=== PATIENT | male | born 1940 | race Caucasian/White ===

== ENCOUNTER 2018-05-03 00:38 | Outpatient (CLI) | payer OTHER, SELFPAY ==
--- NOTE | 2018-05-03 07:01 | DI.RAD_ITS ---
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 There is medial tibiofemoral joint space narrowing , periarticular hypertrophic spurring and chondrocalcinosis. Also, degenerative changes involving the patellofemoral joint are identified. There is no evidence of a joint effusion. 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
[2018-05-03 07:30] LABS: Abs Immature Grans 0.04 k/cumm (0.0-0.09); Absolute Basophil Count 0.09 k/cumm (0.0-0.2); Absolute Eosinophil Count 0.35 k/cumm (0.0-0.7); Absolute Lymphocyte Count 1.77 k/cumm (1.2-3.4); Absolute Monocyte Count 0.88 k/cumm (0.11-0.7); Absolute Neutrophil Count 4.71 k/cumm (1.2-6.7); Basophils % 1.1; Eosinophils % 4.5; HGB 14.1 g/dL (13.5-17.5); Immature Grans % 0.5; Lymphocytes % 22.6; Mean Corp. HGB Concentration 34.4 g/dL (32.0-36.0); Mean Corpuscular Hemoglobin 31.6 pg (27.0-33.0); Mean Corpuscular Volume 91.9 fL (80-95); Mean Platelet Volume 8.6 fL (8.0-11.0); Monocytes % 11.2; Neutrophils % 60.1; Platelet Count 253 x1000/uL (130-400); RBC 4.46 m/cumm (4.50-6.00); RBC Distribution Width 12.4 % (11.8-14.1); White Blood Cell Count 7.84 k/cumm (4.4-10.8)
[2018-05-03 07:53] LABS: ALT 37 U/L (12-78); AST 24 U/L (15-37); Albumin 3.7 g/dL (3.4-5.0); Alkaline Phosphatase 89 U/L (46-116); Anion Gap 8.2 mmol/L (3-11); BUN 18 mg/dL (7-18); Bilirubin, Total 0.6 mg/dL (0.2-1.0); CO2 28.8 mmol/L (21.0-32.0); CREATININE 0.81 mg/dL (0.70-1.30); Calcium 8.8 mg/dL (8.5-10.1); Chloride 100 mmol/L (98-107); Glucose 92 mg/dL (70-100); Potassium 4.5 mmol/L (3.5-5.1); Sodium 137 mmol/L (136-145); TSH (W/Ref FT4) 1.81 uIU/mL (0.358-3.74); Total Protein 7.1 g/dL (6.4-8.2)
[2018-05-03 08:11] LABS: Cholesterol 181 mg/dL (50-200); HDL Cholesterol 38 mg/dL (40-60); LDL CHOLESTEROL 106 mg/dL (<100); Triglyceride 255 mg/dL (30-150)
== END 2018-05-03 00:58 ==
PROVIDERS: PCP Family Medicine; Visit Provider Family Medicine
DX: M25.561 Pain in right knee (principal); M17.11 Unilateral primary osteoarthritis, right knee; E78.5 Hyperlipidemia, unspecified; I10 Essential (primary) hypertension
CPT/HCPCS: 36415; 73562; 80053; 80061; 83721; 84443; 85025

== ENCOUNTER → 2018-05-31 09:39 | Outpatient (BNVA) | payer OTHER, SELFPAY | PROVIDERS: PCP Family Medicine; Referring Provider Family Medicine; Visit Provider Orthopaedic Surgery | DX: G56.01 Carpal tunnel syndrome, right upper limb (principal); K40.90 Unilateral inguinal hernia, without obstruction or gangrene, not specified as recurrent; M17.11 Unilateral primary osteoarthritis, right knee | CPT/HCPCS: 99211; 99213 ==

== ENCOUNTER 2018-07-06 06:31 | Day surgery (SDC) | payer MEDICARE, SELFPAY ==
[2018-07-06 06:54] VITALS: BP 144/81; PULSE 78; RESP 16; TEMP 35.6; O2SAT 96
[2018-07-06] MEDS: Lidocaine 2% Multi-Dose 50 ML VIAL (07:56)
--- NOTE | 2018-07-06 08:09 | W.PM.DSUDISC ---
Discharge Plan Disposition Patient Disposition: HOME Condition: Improving Discharge Details Reason For Visit: CTS (R) WRIST Attending Provider: Daryn Leal Primary Care Provider: Bj Brasher Home Meds and New Rx's Prescriptions: No Action triamcinolone acetonide 0.1 % cream 1 applic TP TID PRN Qty: 80 RF: 2 atorvastatin 20 MG tablet 20 mg PO DAILY Qty: 90 RF: 4 lisinopril-hydrochlorothiazide [Zestoretic] 1 EACH tablet 1 tab-cap PO DAILY Qty: 90 RF: 4 Discharge Instructions Additional Instructions: Keep your right hand elevated above heart level as much as possible for the next 48-72 hours. Exercise your fingers and thumb as comfort allows. You may loosen your wrist splint and/or the underlying cisco bandage if they feel too tight. Expect some bloody drainage on the underlying gauze bandage. For showering tomorrow, cover your hand with a plastic bag and a rubber band at the forearm to keep the bandages dry. On 07/08/18, you may remove all of your bandages and get your wound wet in the shower with soap and water. Gently pat the stitches dry and cover them with gauze, or extra-large bandaids or with a clean fingerless cotton glove. Resume normal use as tolerated, going without the brace as soon as you are comfortable. Follow-up with Dr. Leal in 1 week for stitch removal. Take tylenol, aleve or ibuprofen for milder pain. Tylenol may be taken at the same time as aleve or at the same time as advil as they are metabolized differently and are not cross toxic. Take norco (hydrocodone 5/325mg) 1-2 every 4-6 hours for more serious pain. [facility] regulations limit the amount of hydrocodone that can be prescribed to 18 tablets. Stand Alone Forms: Gretchen Benito (DSU) Remove Dressings/Wound Care:: 48 hours Shower/Bathe:: 48 hours Diet:: As Tolerated Discharge Orders Discharge Orders: Discharge Order (Routine); Ordered 07/06/18 Ordered By: Daryn Leal
--- NOTE | 2018-07-06 10:21 | ROE_ITS ---
REPORT OF OPERATIVE PROCEDURE DATE OF PROCEDURE July 06, 2018 PREOPERATIVE DIAGNOSIS Chronic right carpal tunnel syndrome. POSTOPERATIVE DIAGNOSIS Chronic right carpal tunnel syndrome. PROCEDURE PERFORMED Right open carpal tunnel release. SURGEON Daryn Leal M.D. COUNSELLING PSYCHOLOGIST Nurse. ANESTHESIA Local 2% Lidocaine plain. PREP ChloraPrep. INDICATIONS This patient is a 78-year-old male who has been bothered by bilateral carpal tunnel syndrome. He unde rwent successful carpal tunnel surgery by me approximately a year ago. He now returns to have the rig ht hand treated. He had already undergone EMG nerve conduction studies verifying the above-named diag nosis. I reviewed with the patient the planned operative procedure in the office and re-reviewed them this morning in the day surgery holding area. I marked his right hand. The risks and benefits were d iscussed. He understood and wished to proceed. PROCEDURE DESCRIPTION The patient was taken to the Operating Suite, where his right upper extremity was prepped with Chlora Prep. Sterile drapes were applied. A timeout was instituted confirming the planned procedure. The pat ient had no allergies. 2% lidocaine was then used to create an anesthetic wheal over the proposed inc ision site. After waiting an appropriate amount of time, the incision was made, this was a universal carpal tunnel incision based over the ring finger ray. Care was taken to deviate the incision in an ulnar direction across the wrist flexion crease so as to prevent any potential injury to the palmar c utaneous branch and the median nerve. Using Loupe magnification, the incision was carried down by a c ombination of sharp and blunt dissection through the palmar fascia. Heiss retractors were inserted. The transverse carpal ligament was easily identified. Under direct vi page, I released the transverse carpal ligament completely, including releasing the antebrachial fasc ia so as to prevent it from acting as a compressive force on the median nerve. In addition, on the distal end of the incision, care was taken that the transverse carpal ligament wa s completely released. I had the patient flex and extend his fingers. The flexor tendons were visible . I did not find any evidence of inflammatory arthritis. There were no loose bodies, foreign bodies o r ganglion cysts. The median nerve had the characteristic hourglass constriction from the tight trans verse carpal ligament. The wound was then irrigated. The skin was closed with sutures of 4-0 Ethilon in an alternating fashion of simple sutures, along with rreo-lcp-frp-near retention sutures. The [place] ent's wounds were dressed with Xeroform gauze, 4x4s, a 3-inch Conforming gauze bandage, a 3-inch Jaison wrap and a commercial wrist immobilizer. He was taken to the Recovery Room in satisfactory condition, tolerating the procedure well.
== END 2018-07-06 08:30 | disposition home or self-care (01) ==
PROVIDERS: PCP Family Medicine; Visit Provider Orthopaedic Surgery
PROC: (CPT 64721; principal; 2018-07-06 07:30)
DX: G56.01 Carpal tunnel syndrome, right upper limb (principal)
CPT/HCPCS: 64721; L3908

== ENCOUNTER → 2018-07-13 11:29 | Outpatient (BNVA) | payer MEDICARE, SELFPAY | PROVIDERS: PCP Family Medicine; Referring Provider Family Medicine; Visit Provider Orthopaedic Surgery | DX: Z47.89 Encounter for other orthopedic aftercare (principal); G56.01 Carpal tunnel syndrome, right upper limb; I10 Essential (primary) hypertension ==

== ENCOUNTER → 2018-07-16 09:00 | Outpatient (BNVA) | payer MEDICARE, SELFPAY | PROVIDERS: PCP Family Medicine; Referring Provider Family Medicine; Visit Provider Surgery | DX: K40.91 Unilateral inguinal hernia, without obstruction or gangrene, recurrent (principal); I10 Essential (primary) hypertension | CPT/HCPCS: 99202; 99213 ==

== ENCOUNTER → 2018-07-24 08:34 | Outpatient (BNVA) | payer MEDICARE, SELFPAY | PROVIDERS: PCP Family Medicine; Referring Provider Family Medicine; Visit Provider Orthopaedic Surgery | DX: Z47.89 Encounter for other orthopedic aftercare (principal); G56.01 Carpal tunnel syndrome, right upper limb ==

== ENCOUNTER 2018-09-05 06:02 | Day surgery (SDC) | payer MEDICARE, SELFPAY ==
[2018-09-05] VITALS (7 sets, daily range): BP systolic 98–145; BP diastolic 54–83; PULSE 62–70; RESP 14–20; TEMP 35.9–36.7; O2SAT 93–98
[2018-09-05] MEDS: Lactated Ringers 1,000 ML 80 ML IV (06:37)
--- NOTE | 2018-09-05 06:54 | W.PM.HP.N ---
Date of service: 09/05/18 Time of Service: 07:03 Assessment and Plan (1) Recurrent right inguinal hernia: Current visit: Yes Status: Acute P\\ Repair of recurrent right inguinal hernia with mesh Risks, benefits and complications have been reviewed. Complications include but are not limited to bleeding, infection, injury to vas, vessels and nerves, injury to bowel and adverse reaction to medications. Questions were entertained and answered to their satisfaction and they wished to proceed. History of Present Illness Chief Complaint: Recurrent RIH Narrative: Patient had in the 70s a right inguinal hernia repair presents today with a recurrent right inguinal hernia that is incarcerated and has been getting worse over the past year Onset: 07/17/17 Location: right groin Duration: 1 year Aggravating or associated factors: walking, lifting Relieving factors: laying down Review of Systems Constitutional Denies fever(s) PFSH Medical History Hyperlipidemia Hypertension Surgical History Colonoscopy - MAC Open Carpal Tunnel release Repair of inguinal hernia Family History Mother Personal history of malignant neoplasm Father No problems noted. Brother No problems noted. Grandfather No problems noted. Grandfather No problems noted. Grandmother No problems noted. Grandmother No problems noted. Social History frequency: does not exercise Smoking and Tabacco status: Never alcohol intake: current alcohol intake frequency: a few times a week lorrie/scientologist: No preference special lorrie needs: No Meds Home Medications Medication Instructions Recorded Confirmed Type atorvastatin 20 mg PO DAILY #90 tab-cap 12/29/14 09/05/18 History lisinopril-hydrochlorothiazide 1 tab-cap PO DAILY #90 tab-cap 12/29/14 09/05/18 History [Zestoretic 20-12.5 Mg Tablet] triamcinolone acetonide 1 applic TP TID PRN PRN 07/27/18 09/05/18 History Allergies Allergy/AdvReac Type Severity Reaction Status Date / Time No Known Allergies Allergy Verified 09/05/18 06:18 Exam Resp Effort & Inspection: normal respiratory effort Auscultation: clear to auscultation bilaterally Cardio Rate: regular rate Rhythm: regular rhythm Heart Sounds: no gallops, no murmurs and no rubs Results Last Vital Signs Temp 96.6 F L 09/05/18 06:20 Pulse 70 09/05/18 06:20 Resp 18 09/05/18 06:20 BP 145/83 H 09/05/18 06:20 Pulse Ox 94 L 09/05/18 06:20
--- NOTE | 2018-09-05 07:08 | W.PM.OP ---
Date of service: 09/05/18 Time of Service: 07:30 Operative Note DATE OF PROCEDURE: 09/05/18 PRE-OP DIAGNOSIS: Recurrent Right inguinal hernia POST-OP DIAGNOSIS: same PROCEDURE: Repair of recurrent right inguinal hernia with mesh SURGEON: Anh Mack ASSISTING SURGEON: Yashira Abebe JUNIOR HIGH MATH TEACHER: Yashira Abebe ANESTHESIA: other (General with LMA/ TAP block) ESTIMATED BLOOD LOSS: 10 PATHOLOGY: none sent COMPLICATIONS: None Patient was transported to: same day Patient's condition: stable Implants: Bard Mesh Perfix Plug REF [id number] Indications: Mr. Fonseca is a pleasant 78 year old male seen in the office by Dr. Carvalho for a recurrent RIH. He has had it for 1 year. It is reducible. Risks, benefits and complications have been reviewed. Complications include but are not limited to bleeding, infection, injury to vas, vessels and nerves, injury to bowel and adverse reaction to medications. Questions were entertained and answered to their satisfaction and they wished to proceed. Findings: Large Direct and indirect hernia Procedure Description: After informed consent was obtained the patient was taken to the operating room and placed in a supine position. Monitors and SCDs were applied and a timeout was done. The patient's name, date of , procedure type, procedure site, allergies to medications, preoperative antibiotic, and DVT prophylaxis were all reviewed. Fire risk was assessed. Next anesthesia did a tap block on the right side under ultrasound guidance. Please see their separate dictation. Once anesthesia was done the abdomen was prepped and draped in a sterile surgical fashion. 0.25% Marcain was injected into the dermis in the right lower quadrant. An incision was made with a 15 blade in the right lower quadrant. Dissection was done with cautery through the subcutaneous tissues and Page's fascia down to the external oblique fascia. The external ring was identified and the external oblique fascia was opened sharply through the external ring. The cut fascia was grasped with hemostats. A large hernia sac was identified and gently dissected away from the cord structures. The cord structures were identified and a Viri drain was placed around them. The cremasteric muscle was dissected away from the cord structures using both cautery and blunt dissection. The hernia sac was opened to make sure there was no bowel. It was then suture ligated and amputated. The remnant was pushed back into the peritoneum. A XL plug was placed into the indirect hernia defect and sutured in place with 2-0 proline. A piece of flat mesh was then attached to the conjoined tendon using a 2-0 Prolene double armed suture. The mesh was secured laterally and medially with a 2-0 Prolene, with a running suture. The tails of the mesh were wrapped around the cord structures effectively cinching down the internal ring. Once the mesh was secured the tissues were irrigated with some normal saline. No bleeding was identified. The external oblique fascia was re-approximated using 2-0 Vicryl running suture. The Page's fascia was re-approximated using interrupted 3-0 Vicryl. The dermis was re-approximated with a running 4-0 Vicryl. The skin was cleaned and dried and skin affix was applied. The scrotum was palpated and the testicle was noted to be within the scrotum. The patient was woken up and taken back to recovery in stable condition. There were no immediate complications. Sponge, instrument and needle counts were correct at the end of the case x2.
--- NOTE | 2018-09-05 07:13 | W.PM.DSUDISC ---
Discharge Plan Disposition Patient Disposition: HOME Condition: Good Discharge Details Reason For Visit: Recurrent right inguinal hernia Attending Provider: Anh Mack Primary Care Provider: Bj Brasher Home Meds and New Rx's Prescriptions: New acetaminophen [Tylenol 8 Hour] 650 mg tablet extended release 650 mg PO Q6H PRN PRN (Reason: pain) Qty: 14 RF: 0 ibuprofen 600 mg tablet 600 mg PO QID PRN (Reason: pain) Qty: 14 RF: 0 Continued atorvastatin 20 MG tablet 20 mg PO DAILY Qty: 90 RF: 4 lisinopril-hydrochlorothiazide [Zestoretic] 1 EACH tablet 1 tab-cap PO DAILY Qty: 90 RF: 4 triamcinolone acetonide 0.1 % cream 1 applic TP TID PRN PRNRF: 0 Discharge Instructions Instructions: Inguinal Hernia Repair (DC) Additional Instructions: Activity at Home after surgery: 1. Make sure you walk outside at least 4 times per day 2. You should be able to climb a flight of stairs 3. No driving while in pain or taking pain medications 4. No strenuous activity or heavy lifting for 4 weeks Diet, Nutrition, & wound healin. Avoid alcohol until after you are recovered from your surgery 2. Make sure to eat plenty of lean protein (meat, fish, eggs, cottage cheese, beans) 3. Eat a variety of fruits and vegetables. Eat plenty of high fiber foods to avoid constipation. 4. Drink plenty of liquids to stay hydrated and avoid constipation Pain Medications: 1. Alternate Tylenol 650 mg and Ibuprofen 600 mg every 3 hours 2. If a narcotic has been prescribed take as directed only for breakthrough pain For Constipation: 1. Take Milk of Magnesia or MiraLax as needed for constipation Other: 1. You may shower daily. Do not scrub the incisions 2. Do not soak the incisions for 1 week 3. You may alternate ice and heat as needed for pain and swelling Wound Care: 1. Keep the incisions clean and dry Please call our office if you develop: 1. Fevers >101.5 2. Nausea or Vomiting 3. Worsening pain 4. Redness and thick discharge from the wounds If after hours please call the Hospital at and ask to speak to the on-call surgeon Referrals: Yashira Abebe PA [PHYSICIANS TECHNICAL OPERATIONS MANAGER] - 09/20/18 9:00 am Activity:: Activity as Tolerated Diet:: As Tolerated Discharge Orders Discharge Orders: Discharge Order (Routine); Ordered 09/05/18 Ordered By: Anh Mack DS: Diagnosis Discharge Diagnosis (1) Recurrent right inguinal hernia: Status: Acute
--- NOTE | 2018-09-05 07:16 | PDOC.DSDIS_ITS ---
Discharge Plan Disposition Patient Disposition: HOME Condition: Good Discharge Details Reason For Visit: Recurrent right inguinal hernia Attending Provider: Anh Mack Primary Care Provider: Bj Brsaher Home Meds and New Rx's Prescriptions: New acetaminophen [Tylenol 8 Hour] 650 mg tablet extended release 650 mg PO Q6H PRN PRN (Reason: pain) Qty: 14 RF: 0 ibuprofen 600 mg tablet 600 mg PO QID PRN (Reason: pain) Qty: 14 RF: 0 Continued atorvastatin 20 MG tablet 20 mg PO DAILY Qty: 90 RF: 4 lisinopril-hydrochlorothiazide [Zestoretic] 1 EACH tablet 1 tab-cap PO DAILY Qty: 90 RF: 4 triamcinolone acetonide 0.1 % cream 1 applic TP TID PRN PRNRF: 0 Discharge Instructions Instructions: Inguinal Hernia Repair (DC) Additional Instructions: Activity at Home after surgery: 1. Make sure you walk outside at least 4 times per day 2. You should be able to climb a flight of stairs 3. No driving while in pain or taking pain medications 4. No strenuous activity or heavy lifting for 4 weeks Diet, Nutrition, & wound healin. Avoid alcohol until after you are recovered from your surgery 2. Make sure to eat plenty of lean protein (meat, fish, eggs, cottage cheese, beans) 3. Eat a variety of fruits and vegetables. Eat plenty of high fiber foods to avoid constipation. 4. Drink plenty of liquids to stay hydrated and avoid constipation Pain Medications: 1. Alternate Tylenol 650 mg and Ibuprofen 600 mg every 3 hours 2. If a narcotic has been prescribed take as directed only for breakthrough pain For Constipation: 1. Take Milk of Magnesia or MiraLax as needed for constipation Other: 1. You may shower daily. Do not scrub the incisions 2. Do not soak the incisions for 1 week 3. You may alternate ice and heat as needed for pain and swelling Wound Care: 1. Keep the incisions clean and dry Please call our office if you develop: 1. Fevers >101.5 2. Nausea or Vomiting 3. Worsening pain 4. Redness and thick discharge from the wounds If after hours please call the Hospital at and ask to speak to the on-call surgeon Referrals: Yashira Abebe PA [PHYSICIANS HYDROBLASTER] - 09/20/18 9:00 am Activity:: Activity as Tolerated Diet:: As Tolerated Discharge Orders Discharge Orders: Discharge Order (Routine); Ordered 09/05/18 Ordered By: Anh Mack DS: Diagnosis Discharge Diagnosis (1) Recurrent right inguinal hernia: Status: Acute
[2018-09-05] MEDS: Bupivacaine 0.25% Pres-Free 30 ML VIAL (07:33)
[2018-09-05] MEDS: Bupivacaine 0.25% Pres-Free 10 ML VIAL (07:52)
== END 2018-09-05 11:15 | disposition home or self-care (01) ==
PROVIDERS: PCP Family Medicine; Visit Provider Surgery
PROC: (CPT 49505; principal; 2018-09-05 07:30)
DX: K40.91 Unilateral inguinal hernia, without obstruction or gangrene, recurrent (principal); I10 Essential (primary) hypertension
CPT/HCPCS: 49505; 76942; NC; C1781; J0690; J1100; J2405

== ENCOUNTER → 2018-09-20 08:54 | Outpatient (BNVA) | payer MEDICARE, SELFPAY | PROVIDERS: PCP Family Medicine; Referring Provider Family Medicine; Visit Provider Physical Therapy Assistant | DX: Z48.815 Encounter for surgical aftercare following surgery on the digestive system (principal); K40.90 Unilateral inguinal hernia, without obstruction or gangrene, not specified as recurrent ==

== ENCOUNTER 2018-11-01 12:46 | Outpatient (CLI) | payer MEDICARE, SELFPAY ==
[2018-11-01 14:56] LABS: Bilirubin Negative (Negative); Blood Negative (Negative); Clarity Clear; Glucose Negative (Negative); Ketones Negative (Negative); Leukocyte Esterase Negative (Negative); Nitrite Negative (Negative); Urobilinogen 0.2 EU/dL (Up TO 0.2)
[2018-11-01 15:05] LABS: Abs Immature Grans 0.03 k/cumm (0.0-0.09); Absolute Basophil Count 0.08 k/cumm (0.0-0.2); Absolute Eosinophil Count 0.26 k/cumm (0.0-0.7); Absolute Lymphocyte Count 1.75 k/cumm (1.2-3.4); Absolute Monocyte Count 0.89 k/cumm (0.11-0.7); Absolute Neutrophil Count 6.72 k/cumm (1.2-6.7); Basophils % 0.8; Eosinophils % 2.7; HGB 13.1 g/dL (13.5-17.5); Immature Grans % 0.3; Mean Corp. HGB Concentration 33.6 g/dL (32.0-36.0); Mean Corpuscular Hemoglobin 30.3 pg (27.0-33.0); Mean Corpuscular Volume 90.3 fL (80-95); Mean Platelet Volume 8.7 fL (8.0-11.0); Monocytes % 9.1; Neutrophils % 69.1; Platelet Count 318 x1000/uL (130-400); RBC 4.32 m/cumm (4.50-6.00); RBC Distribution Width 12.6 % (11.8-14.1); White Blood Cell Count 9.73 k/cumm (4.4-10.8)
[2018-11-01 16:35] LABS: Anion Gap 9.7 mmol/L (3-11); BUN 24 mg/dL (7-18); CO2 26.3 mmol/L (21.0-32.0); CREATININE 1.12 mg/dL (0.70-1.30); Chloride 100 mmol/L (98-107); Glucose 108 mg/dL (70-100); Sodium 136 mmol/L (136-145)
== END 2018-11-01 13:06 ==
PROVIDERS: PCP Family Medicine; Visit Provider Orthopaedic Surgery
DX: M25.561 Pain in right knee (principal); M17.11 Unilateral primary osteoarthritis, right knee; I10 Essential (primary) hypertension; E66.9 Obesity, unspecified; Z01.818 Encounter for other preprocedural examination; Z48.815 Encounter for surgical aftercare following surgery on the digestive system; K40.90 Unilateral inguinal hernia, without obstruction or gangrene, not specified as recurrent
CPT/HCPCS: 36415; 80051; 82947; 84520; 81003; 82565; 85025; 93005; 93010

== ENCOUNTER 2018-11-07 05:48 | Inpatient (IN) | payer MEDICARE, SELFPAY ==
[2018-11-01 13:37] VITALS: BP 119/62; PULSE 81; RESP 18; TEMP 36.9; O2SAT 99
[2018-11-01 13:41] VITALS: BP 119/62; PULSE 81; RESP 18; TEMP 36.9; O2SAT 99
--- NOTE | 2018-11-01 14:09 | PDOC.CMPRO ---
Care Management Progress Note S/O-Met with Esvin during pre-op visit to discuss plans. He is 78 yo who lives with his SO, Darcie Allison, in their home in [place]. It is all on one floor with 3 steps into home. He is having R TKA on 11/07/[address] Leal. He usually is independent at home, although he is currently using a cane to get around. He drives, but will not be able to do so initially after surgery. He plans to go to OP PT in [facility], unless he decides otherwise after his surgery. He has access to a walker to borrow. His SO will drive him to OP PT. He has Advance Directive on file that has Darcie Allison as his agent. P-CM will follow during admission.
--- NOTE | 2018-11-01 15:10 | NUR.NOTE ---
Cassidy Ortiz CRNA reviewed EKG from today's visit and spoke with patient. Nursing Note:
[2018-11-07] VITALS (16 sets, daily range): BP systolic 102–153; BP diastolic 58–81; PULSE 69–88; RESP 14–18; TEMP 35.5–36.9; O2SAT 95–100
[2018-11-07] MEDS: Lactated Ringers 1,000 ML 80 ML IV (06:33)
[2018-11-07] MEDS: Bupivacaine LIPOSOME/PF 133 MG/10 ML VIAL IJ (07:15)
[2018-11-07] MEDS: Bupivacaine 0.5% Pres-Free 30 ML VIAL (07:15)
[2018-11-07] MEDS: ceFAZolin 2 GM/50 ML BAG IVPB (07:36)
[2018-11-07] MEDS: Hydrogen Peroxide 3% 480 ML BTL (09:17)
[2018-11-07] MEDS: Lactated Ringers 1,000 ML 90 ML IV (10:40)
--- NOTE | 2018-11-07 10:46 | DI.RAD_ITS ---
SYMPTOM/DIAGNOSIS: RT TOTAL KNEE ARTHROPLASTY RIGHT KNEE: Two views. Comparison is made with 05/03/18. The patient is now status post right total knee replacement. The orthopedic hardware appears in good position. The bones are intact. Post surgical changes are seen in the soft tissues. Skin duyen are present. IMPRESSION: Status post right TKR.
[2018-11-07] MEDS: POTASSIUM CHLORIDE/0.9% NACL 1,000 ML 125 MEQ IV (11:39)
--- NOTE | 2018-11-07 11:43 | NUR.NOTE ---
Nursing Note: A&Ox3. VSS. a little drowsy. HR reg, LS clear. IV fluids running. Page intact and patent. denies pain, CMST's WNL. cryo cuff and immobilizer on. oriented to room. @ bedside
--- NOTE | 2018-11-07 13:50 | ROE_ITS ---
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 PROCEDURE: Right total knee arthroplasty, cemented. SURGEON: Daryn Leal M.D. ASSESSMENT: Lori Aguillon PA-C ANESTHESIA: Right femoral nerve blockade followed by spinal, Osvaldo Frederick C.R.N.A. PREP: ChloraPrep. INDICATIONS: This patient has had end-stage osteoarthritic symptoms of his right knee. He has failed conservative treatment including Viscosupplementation. He recently had hernia surgery and is now anxious to have h is arthritic knee fixed. I discussed the planned operative procedure with him in detail, the risks an d benefits discussed. He understood and wished to proceed. I met him and his significant other in [facility] and marked his knee with a surgical skin marker. DESCRIPTION OF PROCEDURE: The patient was taken to the Operating Suite. The patient underwent femoral nerve blockade and then was placed in the sitting position in the Opera ting Room and underwent successful spinal anesthesia. Prophylactic intravenous antibiotics were start ed consisting of Ancef 2 grams IV. The patient was placed supine on the Operating Room table. Page catheter was inserted under sterile technique. This was an atraumatic insertion, but there was a sli ght amount of blood in the urine. This did not persist during the course of the case. A pneumatic tourniquet was applied to the proximal thigh and the entire right lower extremity was pre pped with ChloraPrep. Sterile drapes were applied. At this point, timeout was instituted verifying the patient's medical history, the fact that the surg ical site was signed and any significant other issues were discussed. The leg was elevated to exsangu inate it for 2 minutes. The tourniquet was inflated to 380 mmHg. A standard anterior approach for total knee arthroplasty was utilized. The skin and subcutaneous tiss ues were incised. Hemostasis was controlled by electrocautery. A medial parapatellar arthrotomy was performed after the peritenon over the patellar tendon was carefully preserved. There was a mild amou nt of synovial fluid in the prepatellar bursa. A large amount of joint fluid was evacuated from the k nee, it has a pristine appearance. With minimal difficulty, the patient patella was everted 90 degrees and the knee was inspected. There was severe osteoarthritic changes along the medial tibial plateau corresponding to the patient's x-r ays. There was obvious varus deformity. There was no articular cartilage left on the distal medial fe moral condyle. There were numerous osteophytes over the margin of the medial femoral condyle. There w ere smaller osteophytes over the lateral femoral condyle. The ACL was intact. Using standard Press-Fit condylar stigma instrumentation, a total knee was performed, specifically af ter performing a subperiosteal release of the medial collateral ligament. Retractors were inserted an d a guide nadja was inserted up the femur; this was done without difficulty. A 6-degree valgus bushing was then selected for the angular cut. Because of the significant flexion c ontracture, I elected to resect 12 millimeters from the distal femoral condyle. More bone was resecte d laterally than medially because of the pre-existent wear. After resecting the distal femur, it was felt that a size 5 femoral component had the most appropriat e fit, this did not overstuff the joint and it had good coverage in the medial and lateral direction, as well as the anterior and posterior direction. Cutting jigs were applied and the size 5 right post erior cruciate retaining femoral component fit perfectly. Next, the posterior cruciate ligament was carefully recessed. Retractors were placed around the tibia l plateau. An external alignment jig was then used to resect the tibial plateau, again resecting more bone laterally than medially. After resecting the bone, there were numerous loose bodies and osteophytes that were removed from the knee using rongeurs, as well as using rasps to smooth out the surfaces of the bone. A size 5 tibial tray was felt to have good fit without overstuffing the joint. A trial component was placed and the knee came out to full extension. This was done after extensive work was done posterior ly as the patient's posterior femoral condyles extended proximal to the condylar component of the tri al femoral component. Care was taken to make sure that the origins of the medial and lateral heads of the gastroc were not being encumbered. Appropriate instrumentation was used to create a channel in the superior surface of the tibia for the rotating platform. The knee came out to full extension with the trial component in place. There was no instability in extension and there was no flexion instability. Axial rotation alignment was then a djusted for the tibial component with a longitudinal axis pointing to the base of the second metatars al. The patella was measured with a caliper and measured 25.9 millimeters. It was resected by a crista on of a cutting jig and freehand technique. I felt that a size 35 mm tripronged patellar component wo uld have the most appropriate fit. After cutting the patellar surface, a drill guide was used to crea te 3 lug holes fixation holes. The 35-mm trial component restored the patellar thickness to 27 mill imeters and I felt that was acceptable. The patella was then checked for stability and there was no t endency whatsoever for dislocation. After removing all osteophytes and irrigating the knee copiously, the proximal tibia component was ce mented first. This was done by mixing Methylmethacrylate, which contained gentamicin in a vacuum nikko darlene. Standard pressurization techniques were utilized and the extraneous cement was removed. The first batch of cement was allowed to cure completely before cementing the patella and femoral com ponents simultaneously. Again, this was done by first irrigating the bone using peroxide-soaked Ray-T ec sponges so as to get good bony intrusion and then cementing the femoral and patellar components wi th Methylmethacrylate containing gentamicin. All extraneous cement was removed. Careful attention was paid to making sure all of cement debris and bone debris had been removed from the knee. It was felt that a size 5 x 10 mm rotating platform tibial tray would have the most appropriate fit. The actual component was then placed. Again, stability was excellent. Patellar tracking was normal with no need of medially directed thumb pressure to keep the patella relocated. Betadine irrigation protocol was t hen instituted. Betadine consisting of 17.5 cc of Betadine and 500 cc of saline was placed in the kne e over the course of 3 minutes. The knee was then irrigated with 1000 cc of sterile saline and a puls atile jet lavage technique. The medial parapatellar arthrotomy was then closed with quad tendon clos ed in layers with sutures of #1- Vicryl in a [id number] fashion. The medial incision achieved a watertight closure. The peritenon was then carefully repaired over the distal portion of the incision with #2-0 Vicryl, and subcutaneous tissue were closed with #2-0 Vicryl. Tranexamic acid, 3 grams an d 100 cc of saline were then placed in the joint. The tourniquet was then deflated and hemostasis was under control. There was excellent return of circulation to the limb. The subcutaneous tissues were closed with additional sutures of #2-0 Vicryl and the skin was closed with duyen. Sterile dressings were applied consisting of Xeroform gauze, 4x4s, ABD pads, a two 6-inch Jaison wraps f ollowed by a Cryo/Cuff, and a commercial knee immobilizer. The patient was taken to the Recovery Room in satisfactory condition tolerating the procedure well.
[2018-11-07] MEDS: Acetaminophen 325 MG TAB 650 MG PO (14:15)
[2018-11-07] MEDS: Ibuprofen 600 MG TAB PO (14:16)
[2018-11-07] MEDS: POTASSIUM CHLORIDE/0.9% NACL 1,000 ML 30 MEQ IV (19:30)
[2018-11-07] MEDS: Atorvastatin 20 MG TAB PO (19:39)
[2018-11-08] VITALS (8 sets, daily range): BP systolic 104–128; BP diastolic 56–71; PULSE 68–76; RESP 16–20; TEMP 36.5–37.2; O2SAT 94–99
[2018-11-08] MEDS: Acetaminophen 325 MG TAB 650 MG PO (00:07)
[2018-11-08] MEDS: HYDROcodone 5/Acetaminophen 325 TAB PO ×4 (06:59→19:33)
[2018-11-08 07:01] LABS: HCT 33.1 % (40.0-50.0); Mean Corp. HGB Concentration 33.2 g/dL (32.0-36.0); Mean Corpuscular Hemoglobin 30.1 pg (27.0-33.0); Mean Corpuscular Volume 90.7 fL (80-95); Mean Platelet Volume 8.8 fL (8.0-11.0); Platelet Count 282 x1000/uL (130-400); RBC 3.65 m/cumm (4.50-6.00); RBC Distribution Width 12.3 % (11.8-14.1); White Blood Cell Count 12.11 k/cumm (4.4-10.8)
[2018-11-08 07:11] LABS: Anion Gap 7.3 mmol/L (3-11); BUN 16 mg/dL (7-18); CO2 26.7 mmol/L (21.0-32.0); CREATININE 0.83 mg/dL (0.70-1.30); Calcium 8.3 mg/dL (8.5-10.1); Chloride 101 mmol/L (98-107); Glucose 110 mg/dL (70-100); Potassium 4.2 mmol/L (3.5-5.1); Sodium 135 mmol/L (136-145)
[2018-11-08] MEDS: Lisinopril 20 MG TAB PO (07:43)
[2018-11-08] MEDS: Multivitamin w/Minerals TAB 1 TAB PO (07:44)
[2018-11-08] MEDS: Ibuprofen 600 MG TAB PO ×2 (07:44→21:22)
[2018-11-08] MEDS: Pantoprazole 40 MG TABCR PO (07:44)
[2018-11-08] MEDS: hydroCHLOROthiazide 12.5 MG TAB PO (07:44)
--- NOTE | 2018-11-08 09:04 | W.PM.PROGNOT ---
Date of Service Date of service: 11/08/18 Time of Service: 09:04 Assessment and Plan (1) History of total right knee replacement: Current visit: Yes Status: Acute Excellent post operative progress. Hgb 11.0. Electrolytes okay with mildly depressed Na. Continue p.t. Lovenox to begin today. Subjective Interval history since last seen: Generally feeling well. No chest pain or pressure or shortness of breath. Knee pain is tolerable. Currently standing at bedside with physical therapy Exam Extrem Other: No unusual swelling nor neurovascular deficits of right foot. Objective Objective Clinical Data: Abnormal lab results 11/08/18 11/08/18 Range/Units 06:15 06:15 WBC 12.11 H (4.4-10.8) k/cumm RBC 3.65 L (4.50-6.00) m/cumm Hgb 11.0 L (13.5-17.5) g/dL Hct 33.1 L (40.0-50.0) % Sodium 135 L (136-145) mmol/L Glucose 110 H (70-100) mg/dL Calcium 8.3 L (8.5-10.1) mg/dL Vital Signs Temperature 97.9 F 11/08/18 07:20 Temperature Source Tympanic 11/08/18 07:20 Pulse 71 11/08/18 07:20 Pulse Rhythm Regular 11/08/18 07:51 Respiratory Rate 18 11/08/18 07:20 Respiratory Effort Non-Labored 11/08/18 07:51 Respiratory Depth Normal 11/08/18 07:51 Respiratory Pattern Normal 11/08/18 07:51 Blood Pressure 128/71 11/08/18 07:20 Pulse Oximetry 99 11/08/18 07:20 Respiratory End-tidal CO2 33 11/07/18 11:15 Oxygen Delivery Method Room Air 11/08/18 07:20 Oxygen Flow Rate 0 11/08/18 07:20 Pain Level 3 11/08/18 07:44 Intake & Output 11/07/18 11/07/18 11/08/18 11:59 23:59 11:59 Intake Total 1280 / 3391.25 2111.25 / 3391.25 949 / 949 Output Total 425 / 875 450 / 875 2500 / 2500 Balance 855 / 2516.25 1661.25 / 2516.25 -1551 / -1551 Weight 230 lb 9.656 oz Intake: IV 1280 / 2461.25 1181.25 / 2461.25 299 / 299 Oral 930 / 930 650 / 650 Output: Urine 425 / 875 450 / 875 2500 / 2500 Other: Urine Color Dark Jacquie Dark Jacquie Straw Urine Appearance Clear Clear Clear Comment PACU. Emesis Description None Laboratory Results WBC 12.11 k/cumm (4.4-10.8) H 11/08/18 06:15 RBC 3.65 m/cumm (4.50-6.00) L 11/08/18 06:15 Hgb 11.0 g/dL (13.5-17.5) L 11/08/18 06:15 Hct 33.1 % (40.0-50.0) L 11/08/18 06:15 MCV 90.7 fL (80-95) 11/08/18 06:15 MCH 30.1 pg (27.0-33.0) 11/08/18 06:15 MCHC 33.2 g/dL (32.0-36.0) 11/08/18 06:15 RDW 12.3 % (11.8-14.1) 11/08/18 06:15 Plt Count 282 x1000/uL (130-400) 11/08/18 06:15 MPV 8.8 fL (8.0-11.0) 11/08/18 06:15 Sodium 135 mmol/L (136-145) L 11/08/18 06:15 Potassium 4.2 mmol/L (3.5-5.1) 11/08/18 06:15 Chloride 101 mmol/L (98-107) 11/08/18 06:15 Carbon Dioxide 26.7 mmol/L (21.0-32.0) 11/08/18 06:15 Anion Gap 7.3 mmol/L (3-11) 11/08/18 06:15 BUN 16 mg/dL (7-18) 11/08/18 06:15 Creatinine 0.83 mg/dL (0.70-1.30) 11/08/18 06:15 Estimated GFR/1.73 m2 >= 60.00 (mL/min/1.73m2) 11/08/18 06:15 Glucose 110 mg/dL (70-100) H 11/08/18 06:15 Calcium 8.3 mg/dL (8.5-10.1) L 11/08/18 06:15
--- NOTE | 2018-11-08 11:18 | PHARADMIT ---
Addendum entered by Lynsey Lemon 11/11/18 11:37: Pharmacy Note Subjective post op total knee arthroplasty Md expects discharge home tomorrow Objective pain 2/10, vs ok, no labs today, Bm yesterday Assessment all meds now PO Plan continue to monitor for pain control Addendum entered by Lynsey Lemon 11/10/18 10:29: Pharmacy Note Subjective post op total knee arthroplasty with constipation Objective pain 2/10, vs ok, no labs today Assessment BM meds ordered Plan expect IV pain meds and others switch to PO when appropriate Original Note: Admission Pharmacy Clinical Review RIGHT TOTAL KNEE ARTHROPLASTY Code Status Full Code Current Weight Wgt-104.6 kg Renally Cleared and Narrow Therapeutic Index Meds CrCl~76 mL/min QTc Value / Action Taken QTc-475 (Benadryl,HCTZ, Zofran, Protonix) BP Control, Fever BP- 128/71 Tmax-36.9C Electrolytes reviewed Na- 135 K+4.2 DVT Prophylaxis Lovenox Opiate Usage / Scheduled Bowel Regimen Ordered Yes Yes Plt/SCr for Heparin / Enoxaparin Plts- 282 SCr-0.83 INR for Warfarin na H/H stable, WBC/Bands H&H- 11.0/33.1 WBC- 12.111 Antibiotic appropriateness Ancef Cultures and Sensitivities none Surgical ABX d/c within 24 hr Yes DM control / Insulin Dosing BG-110 Heart Failure (Check EF%) (JAVIER's, B-Block, Diuretics) HCTZ, Lisinopril IV to PO Switch No Home Meds Reviewed Yes Home Meds Not Ordered TAC Cream Comments
[2018-11-08] MEDS: Enoxaparin 30 MG/0.3 ML SYR SC ×2 (11:52→21:22)
--- NOTE | 2018-11-08 12:40 | PT.INIE ---
Date of service: 11/08/18 Time of Service: 08:16 PT Notes Inpatient Physical Therapy Evaluation Date:11/08/2018 Referring Doctor: Daryn Leal MD PT Orders: PT CONSULT: Right total knee arthroplasty. Up to chair weightbearing as tolerated on right with a walker. Patient may get up today if spinal has worn off it otherwise, patient be seen in bed and try CPM protocol along with cryocuff. Precautions: Fall. Standard. WBAT on right LE. Knee immobilizer on when OOB. Patient Profile/Admitting Diagnosis: Patient is a 78-year-old male with severe degenerative joint disease status post right knee total arthroplasty referred to physical therapy for functional mobility training, strengthening exercises, and gait and balance training. PMHX: Medical History Hyperlipidemia Hypertension Surgical History Colonoscopy - MAC Open Carpal Tunnel release Repair of inguinal hernia Social History/Home Situation: Patient lives with in a 1-floor house with a ramp to enter into their bedroom. He was independent with all aspects of ADLs without the need for use of an assistive ambulatory device nor adaptive equipment. Current Functional Limitations: Need for assistance in performing all transfers and ambulation tasks using FWW Equipment Owned/DME: FWW, bedside commode, grab bars, shower chair Subjective: Patient pleasant and cooperative. He is agreeable to a PT consult. . Objective: General Observation: Patient seen resting in bed. JAVIER wraps on right LE. Knee immobilizer on. Anti-DVT pumps to both legs. IV in the right UE. Cryocuff on right knee. Mental Status: Alert and oriented x3 Pain: 0/10 ROM: Right Upper Extremity: Shoulder Flexion WFL. Shoulder abduction WFL. Elbow flexion WFL. Wrist flexion WFL. Functional opening and closing of hand WFL. Left Upper Extremity: Shoulder Flexion WFL. Shoulder abduction WFL. Elbow flexion WFL. Wrist flexion WFL. Functional opening and closing of hand WFL. Right Lower Extremity: Hip flexion 0 to 80 degrees. Hip abduction 0-20. Knee flexion 0-60, range limited by JAVIER wraps and mild discomfort. Ankle dorsiflexion WFL. Ankle plantarflexion WFL. Left Lower Extremity: Hip flexion WFL. Hip abduction WFL. Knee flexion WFL. Ankle dorsiflexion WFL. Ankle plantarflexion WFL. Strength: Right Upper Extremity: Shoulder flexors 5/5. Shoulder abductors 5/5. Elbow flexors 5/5. Elbow extensors 5/5. Slitting Machine Operator Helper strong. Left Upper Extremity: Shoulder flexors 5/5. Shoulder abductors 5/5. Elbow flexors 5/5. Elbow extensors 5/5. Slitting Machine Operator Helper strong. Right Lower Extremity: Hip flexors 3-/5. Hip abductors 3-/5. Knee flexors 3-/5. Knee extensors 3/5. Ankle dorsiflexors 4/5. Ankle plantarflexors 4/5. Left Lower Extremity:Hip flexors 5/5. Hip abductors 5/5. Knee flexors 5/5. Knee extensors 5/5. Ankle dorsiflexors 5/5. Ankle plantarflexors 5/5. Sensation: Intact as to pain and pressure on left LE, diminished on right LE. Bed Mobility/Transfers: Rolling minimal assist Supine to sit CGA to right LE Sit to supine CGA to right LE Sit to stand minimal assist with FWW Stand to sit minimal assist with FWW Bed to chair minimal assist with FWW Chair to bed minimal assist with FWW Gait: Patient was able to tolerate surface ambulation using FWW for 40 feet with 2 turns using step to gait pattern, cues given for walker/management. No report of increased pain on right knee was made. No dizziness nor headache was reported. Balance: Static Sitting: Good Dynamic Sitting: Good Static Standing: Fair Dynamic Standing: Fair Special Tests: Mobility Limitations Standardized Measure [facility] AM-PAC 6 clicks Basic Mobility Inpatient Short Form: Raw Score:18 CMS Score: 47% deficit Informed Consent/Education: Patient instructed in purpose of PT consult and plan of care. Patient was also instructed during transfers and directional changes. He was advised to perform exercises as follows: Quadriceps sets x10, ankle pumps x30, heel slides to tolerance held for 5 count at end range x10. Assessment: Patient is a 78-year-old male with severe degenerative joint disease status post right knee total arthroplasty. Patient presents with clinical signs and symptoms consistent with current/admitting diagnoses and postoperative status that have resulted to mobility limitations, gait instability, generalized weakness, and impairment of motor control as demonstrated by the following impairment level findings: 1. Decreased strength to R LE major muscle groups 2. Impaired sitting/standing balance 3. Impaired activity tolerance 4. Limitation of joint range of motion in right knee and hip joints Impairments are contributing to the following functional limitations: 1. Dependent bed mobility skills 2. Increased dependence with transfers 3. Inability to safely ambulate without assistive device and physical assistance 4. Increase completion time for mobility ADL performance 5. Increased fall risk Patient is assessed as a Moderate 42062 complexity based on the following: History: Patient is a 78-year-old male with severe degenerative joint disease status post right knee total arthroplasty with independent premorbid level Examination: Underlying impairments and functional limitations as noted above Presentation: Evolving Decision Makin moderate complexity Goals: Goals X1 week 1. Supine-Sit independent 2. Sit-Supine independent 3. Sit-Stand independent 4. Stand-Sit independent 5. Bed-Chair independent 6. Chair-Bed independent 7. Independent gait on level surface with use of least restrictive device for at least 300 feet without report of pain nor dyspnea 8. Independent with home exercise program 9. Good static and dynamic standing balance/tolerance Plan of Care/Treatment Plan: 1-2x/day, 7 days/week x 1 week. Plan of care has been reviewed with the LENDING ACTIVITIES SUPERVISOR providing the service under Physical Therapy direction. Initiate Physical Therapy intervention for strengthening, bed mobility, transfers, gait, stairs, balance training, use of assistive device. DISCHARGE RECOMMENDATIONS: Patient will benefit from home health physical therapy services in order to progress mobility level and assistive device, assess home safety, establish/implement a functional maintenance program for strengthening and fall reduction. No equipment needs at this time. TREATMENT CODE/TIME: 74346 for 30 minutes, 58810 for 13 minutes beginning at 8:46 AM. Thank you for this referral. Rizwana David, PT, DPT, CLT [facility]
--- NOTE | 2018-11-08 15:34 | PDOC.CMIN ---
Care Management Initial Assess REASON FOR HOSPITALIZATION:: Right Total Knee Arthroplasty PAST MEDICAL HISTORY/PAST SURGICAL HISTORY:: Hyperlipidemia, hypertension, colonoscopy, open carpal tunnel release, repair of inguinal hernia. PREVIOUS FUNCTIONAL STATUS/SOCIAL/FAMILY SUPPORTS:: Esvin resides in [place], with his new , Darcie. The couple report eight children collectively and a supportive family. Both were previously and appear very happy; holding hands as they share the story of marrying eachother this last winter. They are independent at baseline and report enjoying being active, dancing, playing cards and socializing. Esvin reports being an avid outdoorsman; hunting and fishing, and shares hopes that he can do so more easily post surgically. CURRENT FUNCTIONAL STATUS:: Esvin is lying in bed, Darcie at his bedside. He engages easily, laughs often and is forthcoming in information. ADVANCE DIRECTIVES:: Pre-Op note states document on file with Darcie as agent. This proposal manager writer unable to find document other than a 2011 document listing Esvin's previous . Has patient been provided with information about the portal?: Yes Did the patient sign up for the portal?: Yes (Previously) CODE STATUS:: Full Code INSURANCE COVERAGE / FINANCIAL ISSUES:: Medicare. [facility]. AARP CURRENT HOME/COMMUNITY SERVICES/EQUIPMENT:: Indra HOOKER PRIMARY CARE PHYSICIAN:: [facility] POTENTIAL DISCHARGE NEEDS:: Pt evaluation, follow up appointments. PATIENT/FAMILY EDUCATION NEEDS:: Review of discharge instructions, discuss Ask Me Three. ANTICIPATED BARRIERS TO DISCHARGE:: None identified. TRANSPORTATION:: Via private vehicle with his , Darcie. PLAN:: Esvin will return home when ready per MD. He will follow up with Dr. Leal, his PCP and his plan of care including activity restrictions and medication recommendations. He reports planning to attend OP/PT when cleared by MD. He will transport home via private vehicle with his , Darcie.
--- NOTE | 2018-11-08 15:50 | PT.INTREAT ---
Date of service: 11/08/18 Time of Service: 15:50 PT Notes Inpatient Physical Therapy Treatment Note [facility] Date: 11/08/18 PRECAUTIONS: Fall, WBAT on R SUBJECTIVE: Esvin reports that he has been sitting up in chair for several hours. OBJECTIVE: PAIN: Patient c/o R knee pain with weight bearing and ther ex BED MOBILITY/TRANSFERS Sit-supine: I with HOB flat Sit-stand: Mod A Stand-sit: CGA GAIT Assistive Device: FWW Weight bearing: WBAT On R Assist: CGA Distance: 40' Deviation: Stand rest x2, c/o R knee pain THEREX: Patient completed a LE strengthening and stabilization program, as per flow sheet. He was able to perform active SLR without knee immobilizer in place. Ended session with elena brown ASSESSMENT: Patient tolerated session with singificant pain in R knee with weight bearing and ther ex. He would benefit from continued gait and transfer training as well as strengthening for improved mobility and activity tolerance. PLAN: Continue with PT's POC TREATMENT CODE/TIME: 30 minutes; 44443, [id number]
--- NOTE | 2018-11-08 16:21 | CHAPLAIN ---
Munir and I realized we had met when his , Narda, here at [facility] three years ago. Since then he is remarried to Darcie and they seem to be enjoying a very happy life. Munir things he will be discharged tomorrow. He is a member of the [facility] and gave me permission to contact his poultry dresser, Rev. Chacorta Gutiérrez, to let him know Munir is here. I left a message with Chacorta.
--- NOTE | 2018-11-08 16:33 | INITIAL_ITS ---
Care Management Initial Assess REASON FOR HOSPITALIZATION:: Right Total Knee Arthroplasty PAST MEDICAL HISTORY/PAST SURGICAL HISTORY:: Hyperlipidemia, hypertension, colonoscopy, open carpal tunnel release, repair of inguinal hernia. PREVIOUS FUNCTIONAL STATUS/SOCIAL/FAMILY SUPPORTS:: Esvin resides in [place], with his new , Darcie. The couple report eight children collectively and a supportive family. Both were previously and appear very happy; holding hands as they share the story of marrying eachother this last winter. They are independent at baseline and report enjoying being active, dancing, playing cards and socializing. Esvin reports being an avid outdoorsman; hunting and fishing, and shares hopes that he can do so more easily post surgically. CURRENT FUNCTIONAL STATUS:: Esvin is lying in bed, Darcie at his bedside. He engages easily, laughs often and is forthcoming in information. ADVANCE DIRECTIVES:: Pre-Op note states document on file with Darcie as agent. This com writer unable to find document other than a 2011 document listing Esvin's previous . Has patient been provided with information about the portal?: Yes Did the patient sign up for the portal?: Yes (Previously) CODE STATUS:: Full Code INSURANCE COVERAGE / FINANCIAL ISSUES:: Medicare. [facility]. AARP CURRENT HOME/COMMUNITY SERVICES/EQUIPMENT:: Indra HOOKRE PRIMARY CARE PHYSICIAN:: [facility] POTENTIAL DISCHARGE NEEDS:: Pt evaluation, follow up appointments. PATIENT/FAMILY EDUCATION NEEDS:: Review of discharge instructions, discuss Ask Me Three. ANTICIPATED BARRIERS TO DISCHARGE:: None identified. TRANSPORTATION:: Via private vehicle with his , Darcie. PLAN:: Esvin will return home when ready per MD. He will follow up with Dr. Leal, his PCP and his plan of care including activity restrictions and medication recommendations. He reports planning to attend OP/PT when cleared by MD. He will transport home via private vehicle with his , Darcie.
[2018-11-08] MEDS: Atorvastatin 20 MG TAB PO (19:34)
[2018-11-09] VITALS (7 sets, daily range): BP systolic 109–145; BP diastolic 59–74; PULSE 61–72; RESP 14–18; TEMP 36.1–37.7; O2SAT 93–99
[2018-11-09] MEDS: POTASSIUM CHLORIDE/0.9% NACL 1,000 ML 30 MEQ IV (00:10)
[2018-11-09] MEDS: HYDROcodone 5/Acetaminophen 325 TAB PO ×3 (06:18→17:44)
[2018-11-09 07:37] LABS: HCT 34.6 % (40.0-50.0); HGB 11.3 g/dL (13.5-17.5); Mean Corp. HGB Concentration 32.7 g/dL (32.0-36.0); Mean Corpuscular Hemoglobin 29.5 pg (27.0-33.0); Mean Corpuscular Volume 90.3 fL (80-95); Mean Platelet Volume 8.8 fL (8.0-11.0); Platelet Count 292 x1000/uL (130-400); RBC 3.83 m/cumm (4.50-6.00); RBC Distribution Width 12.4 % (11.8-14.1); White Blood Cell Count 11.11 k/cumm (4.4-10.8)
[2018-11-09 07:40] LABS: Anion Gap 7.5 mmol/L (3-11); BUN 17 mg/dL (7-18); CO2 26.5 mmol/L (21.0-32.0); CREATININE 0.74 mg/dL (0.70-1.30); Calcium 8.4 mg/dL (8.5-10.1); Chloride 98 mmol/L (98-107); Glucose 95 mg/dL (70-100); Potassium 4.2 mmol/L (3.5-5.1); Sodium 132 mmol/L (136-145)
[2018-11-09] MEDS: hydroCHLOROthiazide 12.5 MG TAB PO (09:26)
[2018-11-09] MEDS: Pantoprazole 40 MG TABCR PO (09:26)
[2018-11-09] MEDS: Multivitamin w/Minerals TAB 1 TAB PO (09:26)
[2018-11-09] MEDS: Lisinopril 20 MG TAB PO (09:27)
[2018-11-09] MEDS: Enoxaparin 30 MG/0.3 ML SYR SC ×2 (09:27→21:58)
[2018-11-09] MEDS: Docusate Sodium 100 MG CAP PO (13:26)
[2018-11-09] MEDS: Ibuprofen 600 MG TAB PO (13:27)
--- NOTE | 2018-11-09 14:57 | PDOC.CMPRO ---
Care Management Progress Note S/O: Esvin remains pleasant in interaction, and reports no concerns at this time. No change to overall plan, anticipate he could return home as soon as tomorrow. CM will continue to follow. A: 78 year old male admitted to [facility] 11/07/18 Right Total Knee Arthroplasty P: Esvin will return home when ready per MD. He will follow up with Dr. Leal, his PCP and his plan of care including activity restrictions and medication recommendations. He reports planning to attend OP/PT when cleared by MD. He will transport home via private vehicle with his , Darcie.
--- NOTE | 2018-11-09 15:48 | PT.INTREAT ---
Date of service: 11/09/18 Time of Service: 15:48 PT Notes Inpatient Physical Therapy Treatment Note [facility] Date: 11/09/18 PRECAUTIONS: Fall, WBAT on R SUBJECTIVE: Munir reports that his knee pain has significant;y increased today versus yesterday. He reports that he has been keeping up with his exercises, independently, every hour, as directed by the PT. OBJECTIVE: PAIN: Patient complained of R knee pain with weight bearing and ther ex BED MOBILITY/TRANSFERS Sit-stand: Min A Stand-sit: CGA GAIT Assistive Device: FWW Weight bearing: WBAT on R Assist: Min A Distance: 30' Deviation: Stand rest x3, slow aleksey, step-to pattern THEREX: Patient completed a LE strengthening and stabilization program, as per flow sheet. Patient completes SLR x10 with assist. Ends with cryocuff to R knee. ASSESSMENT: Patient tolerated session with c/o significant R knee pain with weight bearing and ther ex. Patient would benefit from continued gait and transfer training as well as strengthening for improved mobility. PLAN: Continue with PT's POC TREATMENT CODE/TIME: 30 minutes; 96094, [id number]
--- NOTE | 2018-11-09 16:36 | W.PM.PROGNOT ---
Date of Service Date of service: 11/09/18 Time of Service: 16:36 Assessment and Plan (1) History of total right knee replacement: Current visit: Yes Status: Acute Right total knee replacement. Satisfactorry pst op course. Hep cap Iv. Shower tomorrow. CBC and lytes today are okay'. Subjective Interval history since last seen: Last 18 hours patient has noticed significant increase in knee pain as the block has worn off. No chest pain, pressure or shortness of breath. No problems voiding since catheter removed. No bowel movement yet. Exam Extrem Other: Almost able to straight leg raise. No neuro deficits right foot. Objective Objective Clinical Data: Abnormal lab results 11/09/18 11/09/18 Range/Units 06:20 06:20 WBC 11.11 H (4.4-10.8) k/cumm RBC 3.83 L (4.50-6.00) m/cumm Hgb 11.3 L (13.5-17.5) g/dL Hct 34.6 L (40.0-50.0) % Sodium 132 L (136-145) mmol/L Calcium 8.4 L (8.5-10.1) mg/dL Vital Signs Temperature 97.2 F L 11/09/18 15:51 Temperature Source Tympanic 11/09/18 15:51 Pulse 61 11/09/18 15:51 Pulse Rhythm Regular 11/09/18 07:39 Respiratory Rate 18 11/09/18 15:51 Respiratory Effort Non-Labored 11/09/18 07:39 Respiratory Depth Normal 11/09/18 07:39 Respiratory Pattern Normal 11/09/18 07:39 Blood Pressure 124/71 11/09/18 15:51 Pulse Oximetry 99 11/09/18 15:51 Respiratory End-tidal CO2 33 11/07/18 11:15 Oxygen Delivery Method Room Air 11/09/18 15:51 Oxygen Flow Rate 0 11/09/18 15:51 Pain Level 3 11/09/18 14:27 Intake & Output 11/08/18 11/09/18 11/09/18 23:59 11:59 23:59 Intake Total 730 / 2029 1148.5 / 1388.5 240 / 1388.5 Output Total 1200 / 3700 1200 / 1525 325 / 1525 Balance -470 / -1671 -51.5 / -136.5 -85 / -136.5 Intake: IV 698.5 / 698.5 Oral 730 / 1630 450 / 690 240 / 690 Output: Urine 1200 / 3700 1200 / 1525 325 / 1525 Other: Urine Color Pale Yellow Yellow Urine Appearance Clear Clear Clear Urine Odor None Laboratory Results WBC 11.11 k/cumm (4.4-10.8) H 11/09/18 06:20 RBC 3.83 m/cumm (4.50-6.00) L 11/09/18 06:20 Hgb 11.3 g/dL (13.5-17.5) L 11/09/18 06:20 Hct 34.6 % (40.0-50.0) L 11/09/18 06:20 MCV 90.3 fL (80-95) 11/09/18 06:20 MCH 29.5 pg (27.0-33.0) 11/09/18 06:20 MCHC 32.7 g/dL (32.0-36.0) 11/09/18 06:20 RDW 12.4 % (11.8-14.1) 11/09/18 06:20 Plt Count 292 x1000/uL (130-400) 11/09/18 06:20 MPV 8.8 fL (8.0-11.0) 11/09/18 06:20 Sodium 132 mmol/L (136-145) L 11/09/18 06:20 Potassium 4.2 mmol/L (3.5-5.1) 11/09/18 06:20 Chloride 98 mmol/L (98-107) 11/09/18 06:20 Carbon Dioxide 26.5 mmol/L (21.0-32.0) 11/09/18 06:20 Anion Gap 7.5 mmol/L (3-11) 11/09/18 06:20 BUN 17 mg/dL (7-18) 11/09/18 06:20 Creatinine 0.74 mg/dL (0.70-1.30) 11/09/18 06:20 Estimated GFR/1.73 m2 >= 60.00 (mL/min/1.73m2) 11/09/18 06:20 Glucose 95 mg/dL (70-100) 11/09/18 06:20 Calcium 8.4 mg/dL (8.5-10.1) L 11/09/18 06:20
--- NOTE | 2018-11-09 16:41 | PT.INTREAT ---
Date of service: 11/09/18 PT Notes Inpatient Physical Therapy Treatment Note [facility] Date: 11/09/2018 PRECAUTIONS: Fall. Standard. WBAT on R.. SUBJECTIVE: Patient reports that he did not sleep well last night due to pain complaint. He states that he is feeling sick to his stomach right now and felt like it was going to faint after transferring from bed to recliner with pain level increased. OBJECTIVE: Patient seen resting in bed and in apparent distress due to pain complaint. PAIN: 7/10 at rest. Reported increase in pain with weight bearing to at least 8/10. BED MOBILITY/TRANSFERS Supine-sit: Minimal assist with HOB 45 degrees up Sit-supine: Minimal assist with HOB 45 degrees up Sit-stand: Minimal assist Stand-sit: Moderate assist with increased pain on left knee while going down onto a chair Bed-Chair: Moderate assist GAIT Assistive Device: FWW Weight bearing: WBAT on right Assist: Minimal assist with minimal verbal cueing for safe techniques and walker management Distance: Patient only tolerated 2 steps forward and 3 side steps and 4 steps backward onto a recliner chair with increase in pain level Deviation: Antalgia observed with increased stance time noted on affected LE and decreased swing time on non-affected side. Verbal cues given to facilitate neutral trunk alignment. THEREX: Patient refused to doing any exercises but ensured that he will do them with PT as soon as pain pill takes effect ASSESSMENT: Patient currently patient's functional and exercise performance currently limited by pain complaint. Nurse has been updated and gave patient scheduled medication. Will continue with seeing patient for a second session of PT this afternoon with plan to see patient within an hour of pain medication intake PLAN: Patient to progress with mobility level, functional performance, and knowledge of HEP to achieve previously established goals. TREATMENT CODE/TIME: 94909 for 26 minutes beginning at 11:06 AM.
[2018-11-09] MEDS: Normal Saline Flush 10 ML SYR IV ×2 (17:44→20:31)
[2018-11-09] MEDS: Atorvastatin 20 MG TAB PO (19:45)
[2018-11-09] MEDS: Normal Saline Flush 10 ML SYR (21:59)
[2018-11-10] VITALS (7 sets, daily range): BP systolic 103–138; BP diastolic 56–75; PULSE 68–76; RESP 16–18; TEMP 36–36.7; O2SAT 95–98
[2018-11-10] MEDS: HYDROcodone 5/Acetaminophen 325 TAB PO ×3 (03:23→16:47)
[2018-11-10] MEDS: Pantoprazole 40 MG TABCR PO (08:07)
[2018-11-10] MEDS: Multivitamin w/Minerals TAB 1 TAB PO (08:07)
[2018-11-10] MEDS: Lisinopril 20 MG TAB PO (08:08)
[2018-11-10] MEDS: hydroCHLOROthiazide 12.5 MG TAB PO (08:08)
[2018-11-10] MEDS: Normal Saline Flush 10 ML SYR IV (08:09)
[2018-11-10] MEDS: Milk of Magnesia 30 ML CUP PO (08:26)
[2018-11-10] MEDS: Acetaminophen 325 MG TAB 650 MG PO (08:29)
--- NOTE | 2018-11-10 08:38 | PGE_ITS ---
Date of Service Date of service: 11/10/18 Time of Service: 08:32 Assessment and Plan (1) History of total right knee replacement: Current visit: Yes Status: Acute S/P right total knee arthroplasty with post operative constipation. No signs of any obvious complications. Will continue iv zofran and phenergan. Will order dulcolax tablets. Up to shower if patient feels up to it. Subjective Interval history since last seen: Paatient had a diffficult night last night secondary to nausea and constipation. Was able to pass some gas on the commode, but no bowel movement. No chest pain, pressure or shortness of breath. No burning with uriantion, but does have some frequency. Exam Extrem Other: Right knee incision is benign No drainage or cellulitis. Mild amount of post operative redness which is expected at this point.Wound will be left open to the air. I able to weight bear with walker. Objective Objective Clinical Data: Vital Signs Temperature 98.1 F 11/10/18 03:00 Temperature Source Tympanic 11/10/18 03:00 Pulse 71 11/10/18 03:00 Pulse Rhythm Regular 11/09/18 23:30 Respiratory Rate 16 11/10/18 03:00 Respiratory Effort Non-Labored 11/09/18 23:30 Respiratory Depth Normal 11/09/18 23:30 Respiratory Pattern Normal 11/09/18 23:30 Blood Pressure 129/75 11/10/18 03:00 Pulse Oximetry 98 11/10/18 03:00 Respiratory End-tidal CO2 33 11/07/18 11:15 Oxygen Delivery Method Room Air 11/09/18 23:45 Oxygen Flow Rate 0 11/09/18 23:45 Pain Level 2 11/10/18 08:29 Intake & Output 11/09/18 11/09/18 11/10/18 11:59 23:59 11:59 Intake Total 1148.5 / 3167.5 2018 3167.5 Output Total 1600 / 2575 975 / 2575 1600 / 1600 Balance -451.5 / 592.5 1044 / 592.5 -1600 / -1600 Intake: IV 698.5 / 1277.5 579 / 1277.5 Oral 450 / 1890 1440 / 1890 Output: Urine 1600 / 2575 975 / 2575 1600 / 1600 Other: Urine Color Yellow Hardy Yellow Urine Appearance Clear Clear Clear Urine Odor None Comment per pt's director internal communications she dumped his urinal after he voided Voiding Methods Urinal Toilet Urinal Laboratory Results WBC 11.11 k/cumm (4.4-10.8) H 11/09/18 06:20 RBC 3.83 m/cumm (4.50-6.00) L 11/09/18 06:20 Hgb 11.3 g/dL (13.5-17.5) L 11/09/18 06:20 Hct 34.6 % (40.0-50.0) L 11/09/18 06:20 MCV 90.3 fL (80-95) 11/09/18 06:20 MCH 29.5 pg (27.0-33.0) 11/09/18 06:20 MCHC 32.7 g/dL (32.0-36.0) 11/09/18 06:20 RDW 12.4 % (11.8-14.1) 11/09/18 06:20 Plt Count 292 x1000/uL (130-400) 11/09/18 06:20 MPV 8.8 fL (8.0-11.0) 11/09/18 06:20 Sodium 132 mmol/L (136-145) L 11/09/18 06:20 Potassium 4.2 mmol/L (3.5-5.1) 11/09/18 06:20 Chloride 98 mmol/L (98-107) 11/09/18 06:20 Carbon Dioxide 26.5 mmol/L (21.0-32.0) 11/09/18 06:20 Anion Gap 7.5 mmol/L (3-11) 11/09/18 06:20 BUN 17 mg/dL (7-18) 11/09/18 06:20 Creatinine 0.74 mg/dL (0.70-1.30) 11/09/18 06:20 Estimated GFR/1.73 m2 >= 60.00 (mL/min/1.73m2) 11/09/18 06:20 Glucose 95 mg/dL (70-100) 11/09/18 06:20 Calcium 8.4 mg/dL (8.5-10.1) L 11/09/18 06:20
[2018-11-10] MEDS: Enoxaparin 30 MG/0.3 ML SYR SC ×2 (10:13→21:36)
--- NOTE | 2018-11-10 11:36 | PT.INTREAT ---
Date of service: 11/10/18 Time of Service: 11:36 PT Notes Inpatient Physical Therapy Treatment Note [facility] Date: 11/10/2018 PRECAUTIONS: Fall. Standard. WBAT on R SUBJECTIVE: Esvin reports that he is feeling much better, pain-anton, today, although did have some feelings of nausea this morning. OBJECTIVE: PAIN: Minimal c/o pain with ther ex and gait training in R knee BED MOBILITY/TRANSFERS Sit-stand: CGA Stand-sit: SBA GAIT Assistive Device: FWW Weight bearing: WBAT R Assist: CGA Distance: 60' x2 Deviation: Stand rest x1, step-through pattern THEREX: Patient performed LAQ, heel slides, and SLR exercises, as per flow sheet. He was able to perform active SLR x12. His R knee AROM is -10-106 degrees today. He ends session with cryocuff to R knee. ASSESSMENT: Patient tolerated session with minimal c/o R knee pain with gait training and ther ex. He was able to tolerate a progression in gait distance with FWW support and CGA. Patient demonstrates a step through gait pattern, requiring standing rest x1 due to increased fatigue. Patient was able to perform active SLR x12, therefore did not require knee immobilizer with gait training. Patient would benefit from continued gait and transfer training as well as strengthening for improved mobility and improved ability to perform daily functional tasks. PLAN: Continue with PTs POC TREATMENT CODE/TIME: 30 minutes; 53628, [id number]
[2018-11-10] MEDS: Ibuprofen 600 MG TAB PO (12:48)
[2018-11-10 12:57] LABS: Bilirubin Negative (Negative); Blood Negative (Negative); Clarity Clear; Glucose Negative (Negative); Ketones Negative (Negative); Leukocyte Esterase Negative (Negative); Nitrite Negative (Negative); Specific Gravity 1.015 (1.005-1.025); Urobilinogen 0.2 EU/dL (Up TO 0.2)
--- NOTE | 2018-11-10 14:34 | PDOC.CMPRO ---
Care Management Progress Note S/O: Esvin was sitting up in the recliner playing a game of cards with Darcie. Stated he is having trouble with his bowels and needs to have a movement. Requested a large glass of warm prune juice which he received. Said he thinks he will be much better after his bowels move. A: 78 year old male admitted to [facility] 11/07/18 Right Total Knee Arthroplasty P: Esvin will return home when ready per MD. He will follow up with Dr. Leal, his PCP and his plan of care including activity restrictions and medication recommendations. He reports planning to attend OP/PT when cleared by MD but may want HH PT to start. He and Darcie will talk a little more about that and let us know what they prefer. He will transport home via private vehicle with his , Darcie.
--- NOTE | 2018-11-10 14:52 | CMPROGNOTE_ITS ---
Care Management Progress Note S/O: Esvin was sitting up in the recliner playing a game of cards with Darcie. Stated he is having trouble with his bowels and needs to have a movement. Requested a large glass of warm prune juice which he received. Said he thinks he will be much better after his bowels move. A: 78 year old male admitted to [facility] 11/07/18 Right Total Knee Arthroplasty P: Esvin will return home when ready per MD. He will follow up with Dr. Leal, his PCP and his plan of care including activity restrictions and medication recommendations. He reports planning to attend OP/PT when cleared by MD but may want HH PT to start. He and Darcie will talk a little more about that and let us know what they prefer. He will transport home via private vehicle with his , Darcie.
[2018-11-10] MEDS: Atorvastatin 20 MG TAB PO (19:31)
[2018-11-11] MEDS: HYDROcodone 5/Acetaminophen 325 TAB PO ×2 (03:21→12:50)
[2018-11-11 04:42] VITALS: BP 136/77; PULSE 72; RESP 18; TEMP 36.8; O2SAT 99
[2018-11-11 07:48] VITALS: BP 119/71; PULSE 70; RESP 16; TEMP 36.3; O2SAT 97
[2018-11-11] MEDS: hydroCHLOROthiazide 12.5 MG TAB PO (08:06)
[2018-11-11] MEDS: Ibuprofen 600 MG TAB PO ×2 (08:06→18:27)
[2018-11-11] MEDS: Pantoprazole 40 MG TABCR PO (08:06)
[2018-11-11] MEDS: Lisinopril 20 MG TAB PO (08:06)
[2018-11-11] MEDS: Multivitamin w/Minerals TAB 1 TAB PO (08:06)
--- NOTE | 2018-11-11 08:36 | PGE_ITS ---
Date of Service Date of service: 11/11/18 Time of Service: 08:32 Assessment and Plan (1) History of total right knee replacement: Current visit: Yes Status: Acute S/P right total knee arthroplasty, improving. U/a from yesterday was normal. May be up to shower. Anticipate discharge home tomorrow. Patient still getting lovenox and will be on 81 mg aspirin post discharge for dvt p rophylaxis Subjective Interval history since last seen: Patient feeling much better now that he has had a bowel movement. He vasquez lept better as well. No dysuria. Exam Extrem Other: No unusual swelling or signs of infection Objective Objective Clinical Data: Vital Signs Temperature 97.3 F L 11/11/18 07:48 Temperature Source Tympanic 11/11/18 07:48 Pulse 70 11/11/18 07:48 Pulse Rhythm Regular 11/11/18 04:42 Respiratory Rate 16 11/11/18 07:48 Respiratory Effort 11/11/18 04:42 Respiratory Depth Normal 11/11/18 04:42 Respiratory Pattern Normal 11/11/18 04:42 Blood Pressure 119/71 11/11/18 07:48 Pulse Oximetry 97 11/11/18 07:48 Respiratory End-tidal CO2 33 11/07/18 11:15 Oxygen Delivery Method Room Air 11/11/18 07:48 Oxygen Flow Rate 0 11/11/18 07:48 Pain Level 3 11/11/18 08:06 Intake & Output 11/10/18 11/10/18 11/11/18 11:59 23:59 11:59 Intake Total 1132 / 1664 532 / 1664 400 / 400 Output Total 2200 / 2700 500 / 2700 1150 / 1150 Balance -1068 / -1036 32 / -1036 -750 / -750 Intake: IV 52 / 104 52 / 104 Oral 1080 / 1560 480 / 1560 400 / 400 Output: Urine 2200 / 2700 500 / 2700 1150 / 1150 Other: Urine Color Yellow Yellow Yellow Urine Appearance Clear Clear Clear Urine Odor Normal Normal Stool Size Moderate Stool Characteristics Soft Brown Voiding Methods Urinal Urinal Urinal Laboratory Results WBC 11.11 k/cumm (4.4-10.8) H 11/09/18 06:20 RBC 3.83 m/cumm (4.50-6.00) L 11/09/18 06:20 Hgb 11.3 g/dL (13.5-17.5) L 11/09/18 06:20 Hct 34.6 % (40.0-50.0) L 11/09/18 06:20 MCV 90.3 fL (80-95) 11/09/18 06:20 MCH 29.5 pg (27.0-33.0) 11/09/18 06:20 MCHC 32.7 g/dL (32.0-36.0) 11/09/18 06:20 RDW 12.4 % (11.8-14.1) 11/09/18 06:20 Plt Count 292 x1000/uL (130-400) 11/09/18 06:20 MPV 8.8 fL (8.0-11.0) 11/09/18 06:20 Sodium 132 mmol/L (136-145) L 11/09/18 06:20 Potassium 4.2 mmol/L (3.5-5.1) 11/09/18 06:20 Chloride 98 mmol/L (98-107) 11/09/18 06:20 Carbon Dioxide 26.5 mmol/L (21.0-32.0) 11/09/18 06:20 Anion Gap 7.5 mmol/L (3-11) 11/09/18 06:20 BUN 17 mg/dL (7-18) 11/09/18 06:20 Creatinine 0.74 mg/dL (0.70-1.30) 11/09/18 06:20 Estimated GFR/1.73 m2 >= 60.00 (mL/min/1.73m2) 11/09/18 06:20 Glucose 95 mg/dL (70-100) 11/09/18 06:20 Calcium 8.4 mg/dL (8.5-10.1) L 11/09/18 06:20 Urine Color Yellow (Yellow) 11/10/18 12:40 Urine Clarity Clear 11/10/18 12:40 Urine pH 6.0 (5-8) 11/10/18 12:40 Ur Specific [place] 1.015 (1.005-1.025) 11/10/18 12:40 Urine Protein Negative mg/dL (Negative) 11/10/18 12:40 Urine Ketones Negative mg/dL (Negative) 11/10/18 12:40 Urine Blood Negative (Negative) 11/10/18 12:40 Urine Nitrite Negative (Negative) 11/10/18 12:40 Urine Bilirubin Negative (Negative) 11/10/18 12:40 Urine Urobilinogen 0.2 EU/dL (Up TO 0.2) 11/10/18 12:40 Ur Leukocyte Esterase Negative (Negative) 11/10/18 12:40 Urine Glucose Negative mg/dL (Negative) 11/10/18 12:40
[2018-11-11] MEDS: Enoxaparin 30 MG/0.3 ML SYR SC ×2 (09:44→21:42)
[2018-11-11 11:55] VITALS: BP 102/66; PULSE 76; RESP 16; TEMP 36.3; O2SAT 97
--- NOTE | 2018-11-11 12:48 | PDOC.CMPRO ---
Care Management Progress Note S/O: Esvin was sitting up in the recliner watching TV. Darcie was at his side working on a crossword puzzle. Plans to go home tomorrow. A: 78 year old male admitted to [facility] 11/07/18 Right Total Knee Arthroplasty P: Esvin will return home when medically cleared for discharge. He has a FWW. He will follow up with Dr. Leal, his PCP and his plan of care including activity restrictions and medication recommendations. He reports planning to attend outpatient PT and will discuss with Dr. Leal in the morning. Darcie willl transport home via private vehicle.
--- NOTE | 2018-11-11 13:10 | CMPROGNOTE_ITS ---
Care Management Progress Note S/O: Esvin was sitting up in the recliner watching TV. Darcie was at his side working on a crossword puzzle. Plans to go home tomorrow. A: 78 year old male admitted to [facility] 11/07/18 Right Total Knee Arthroplasty P: Esvin will return home when medically cleared for discharge. He has a FWW. He will follow up with Dr. Leal, his PCP and his plan of care including activity restrictions and medication recommendations. He reports planning to attend outpatient PT and will discuss with Dr. Leal in the morning. Darcie willl transport home via private vehicle.
[2018-11-11 15:42] VITALS: BP 125/70; PULSE 74; RESP 17; TEMP 36.9; O2SAT 96
--- NOTE | 2018-11-11 18:12 | PT.INTREAT ---
Date of service: 11/11/18 Time of Service: 18:12 PT Notes Inpatient Physical Therapy Treatment Note [facility] Date: 11/11/2018 PRECAUTIONS: Fall, WBAT on R SUBJECTIVE: Esvin reports that he walked to the shower and back this morning, reporting that he is feeling pretty good. OBJECTIVE: PAIN: Minimal c/o R knee pain with gait training BED MOBILITY/TRANSFERS Sit-stand: SBA Stand-sit: SBA GAIT Assistive Device: FWW Weight bearing: WBAT R Assist: SBA Distance: 200' Deviation: Stand rest x3, step-through pattern, cueing for posture THEREX: Patient performed LAQ, heel slides, hip flexion, and hip abduction exercises, as per flow sheet. He ends session with cryocuff to R knee. ASSESSMENT: Patient tolerated session with minimal c/o R knee pain with gait training. He was able to tolerate a progression in gait distance with FWW support and SBA, although requires several standing rests due to fatigue, and cueing for upright posture. Patient is demonstrating a step through gait pattern. Patient would benefit from continued gait and transfer training as well as strengthening for improved mobility and improved ability to perform daily functional tasks. PLAN: Continue with PTs POC TREATMENT CODE/TIME: 25 minutes; 21409, 30081
[2018-11-11 19:18] VITALS: BP 107/63; PULSE 75; RESP 17; TEMP 36.8; O2SAT 97
[2018-11-11] MEDS: Atorvastatin 20 MG TAB PO (20:05)
[2018-11-12 04:00] VITALS: BP 142/80; PULSE 67; RESP 16; TEMP 37; O2SAT 98
[2018-11-12] MEDS: HYDROcodone 5/Acetaminophen 325 TAB PO (05:46)
[2018-11-12 07:21] VITALS: BP 129/71; PULSE 69; RESP 18; TEMP 36.1; O2SAT 95
[2018-11-12] MEDS: Lisinopril 20 MG TAB PO (07:41)
[2018-11-12] MEDS: Multivitamin w/Minerals TAB 1 TAB PO (07:41)
[2018-11-12] MEDS: hydroCHLOROthiazide 12.5 MG TAB PO (07:41)
[2018-11-12] MEDS: Pantoprazole 40 MG TABCR PO (07:41)
--- NOTE | 2018-11-12 07:57 | W.PM.PROGNOT ---
Date of Service Date of service: 11/12/18 Time of Service: 07:57 Assessment and Plan (1) History of total right knee replacement: Current visit: Yes Status: Acute S/P right total knee arthroplasty, doing well. Discharge home today. Rx and instructions discussed in detail..I also reviewed the d/c plan with P.T. Subjective Interval history since last seen: Feeling well. Ready and anxious to go home. No chest pain, pressure or shortness of breath. Exam Extrem Other: Wound benign. Patient up in chair awaiting breakfast. Objective Objective Clinical Data: Vital Signs Temperature 97.0 F L 11/12/18 07:21 Temperature Source Tympanic 11/12/18 07:21 Pulse 69 11/12/18 07:21 Pulse Rhythm Regular 11/12/18 00:32 Respiratory Rate 18 11/12/18 07:21 Respiratory Effort 11/12/18 00:32 Respiratory Depth Normal 11/12/18 00:32 Respiratory Pattern Normal 11/12/18 00:32 Blood Pressure 129/71 11/12/18 07:21 Pulse Oximetry 95 11/12/18 07:21 Respiratory End-tidal CO2 33 11/07/18 11:15 Oxygen Delivery Method Room Air 11/12/18 07:21 Oxygen Flow Rate 0 11/12/18 07:21 Pain Level 2 11/12/18 07:21 Comment 11/12/18 04:00 Intake & Output 11/11/18 11/11/18 11/12/18 11:59 23:59 11:59 Intake Total 400 / 640 240 / 640 240 / 240 Output Total 1400 / 1400 725 / 725 Balance -1000 / -760 240 / -760 -485 / -485 Intake: Oral 400 / 640 240 / 640 240 / 240 Output: Urine 1400 / 1400 725 / 725 Other: Urine Color Yellow Yellow Urine Appearance Clear Clear Urine Odor Normal Normal Voiding Methods Urinal Toilet Laboratory Results WBC 11.11 k/cumm (4.4-10.8) H 11/09/18 06:20 RBC 3.83 m/cumm (4.50-6.00) L 11/09/18 06:20 Hgb 11.3 g/dL (13.5-17.5) L 11/09/18 06:20 Hct 34.6 % (40.0-50.0) L 11/09/18 06:20 MCV 90.3 fL (80-95) 11/09/18 06:20 MCH 29.5 pg (27.0-33.0) 11/09/18 06:20 MCHC 32.7 g/dL (32.0-36.0) 11/09/18 06:20 RDW 12.4 % (11.8-14.1) 11/09/18 06:20 Plt Count 292 x1000/uL (130-400) 11/09/18 06:20 MPV 8.8 fL (8.0-11.0) 11/09/18 06:20 Sodium 132 mmol/L (136-145) L 11/09/18 06:20 Potassium 4.2 mmol/L (3.5-5.1) 11/09/18 06:20 Chloride 98 mmol/L (98-107) 11/09/18 06:20 Carbon Dioxide 26.5 mmol/L (21.0-32.0) 11/09/18 06:20 Anion Gap 7.5 mmol/L (3-11) 11/09/18 06:20 BUN 17 mg/dL (7-18) 11/09/18 06:20 Creatinine 0.74 mg/dL (0.70-1.30) 11/09/18 06:20 Estimated GFR/1.73 m2 >= 60.00 (mL/min/1.73m2) 11/09/18 06:20 Glucose 95 mg/dL (70-100) 11/09/18 06:20 Calcium 8.4 mg/dL (8.5-10.1) L 11/09/18 06:20 Urine Color Yellow (Yellow) 11/10/18 12:40 Urine Clarity Clear 11/10/18 12:40 Urine pH 6.0 (5-8) 11/10/18 12:40 Ur Specific [place] 1.015 (1.005-1.025) 11/10/18 12:40 Urine Protein Negative mg/dL (Negative) 11/10/18 12:40 Urine Ketones Negative mg/dL (Negative) 11/10/18 12:40 Urine Blood Negative (Negative) 11/10/18 12:40 Urine Nitrite Negative (Negative) 11/10/18 12:40 Urine Bilirubin Negative (Negative) 11/10/18 12:40 Urine Urobilinogen 0.2 EU/dL (Up TO 0.2) 11/10/18 12:40 Ur Leukocyte Esterase Negative (Negative) 11/10/18 12:40 Urine Glucose Negative mg/dL (Negative) 11/10/18 12:40
--- NOTE | 2018-11-12 08:14 | W.PM.DS.N ---
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 His postoperative course was essentially unremarkable. It was complicated by chronic constipation which finally resolved by the a.m. of 11/11/2018. He was maintained on prophylactic intravenous antibiotics for 24 hours. His Page catheter was maintained for 48 hours and then removed. He had no dysuria or signs of urinary tract infection but because of his constipation I elected to perform a post catheter removal urinalysis which was unremarkable. He was maintained on Lovenox prophylaxis 30 mg subcu twice daily. He had no signs of wound problems or complications with a benign-appearing wound. He had serial hemoglobin and basic meta Bolick panel studies done for 48 hours and they were unremarkable with a hemoglobin stabilized in the mid tens. He will be discharged on 11/12/2018 after a.m. PT and will follow up with outpatient physical therapy at the end of the week around 515 through 517. Home Meds and New Rx's Prescriptions: No Action triamcinolone acetonide 0.1 % cream 1 applic TP TID PRN PRNRF: 0 lisinopril-hydrochlorothiazide [Zestoretic] 20-12.5 mg tablet 1 tab PO DAILY Qty: 90 RF: 0 atorvastatin 20 mg tablet 20 mg PO DAILY Qty: 90 RF: 0 acetaminophen [Tylenol 8 Hour] 650 mg tablet extended release 650 mg PO Q6H PRN PRN (Reason: pain) Qty: 14 RF: 0 ibuprofen 600 mg tablet 600 mg PO QID PRN (Reason: pain) Qty: 14 RF: 0 Discharge Instructions Additional Instructions: Use your new knee. You may place her full weight upon it. Use your walker for balance and prevent falls physical therapy will let you know when it safe to go to a cane in her left, that is non-operated side. Usual elastic stockings during the day. They help prevent blood clots. Using baby powder will assist in placing them on. The elastic stockings may be off at nighttime for sleeping. You should continue using your Cryo/Cuff to help minimize pain and swelling. This is especially helpful before and after physical therapy. Take your usual medications as before in addition take a baby aspirin, 81 mg twice daily for the next 2 weeks. This also helps prevent blood clots. Take Tylenol and/or ibuprofen for milder pain. They are metabolized differently so that they may be taken simultaneously without toxic effects. Take hydrocodone(Norco5/325 mg) 1-2 every 4-6 hours for more serious pain [facility] regulations limit the amount of hydrocodone that can be described to 18 tablets follow-up with [facility] physical therapy and [facility] Larson in [facility] at the end of this week. Follow-up with Dr. Leal in 1 week for staple removal Stand Alone Forms: Nursing Discharge Form Activity:: Activity as Tolerated Equipment/Supplies:: Walker Diet:: As Tolerated Discharge Orders Discharge Orders: Discharge Order (Routine); Ordered 11/12/18 Ordered By: Daryn Leal DS: Data Vitals/I&O Vitals and I&O: Vital Signs Temperature 97.0 F L 11/12/18 07:21 Temperature Source Tympanic 11/12/18 07:21 Pulse 69 11/12/18 07:21 Pulse Rhythm Regular 11/12/18 08:02 Respiratory Rate 18 11/12/18 07:21 Respiratory Effort 11/12/18 08:02 Respiratory Depth Normal 11/12/18 08:02 Respiratory Pattern Normal 11/12/18 08:02 Blood Pressure 129/71 11/12/18 07:21 Pulse Oximetry 95 11/12/18 07:21 Respiratory End-tidal CO2 33 11/07/18 11:15 Oxygen Delivery Method Room Air 11/12/18 07:21 Oxygen Flow Rate 0 11/12/18 07:21 Pain Level 2 11/12/18 08:03 Comment 11/12/18 04:00 Intake & Output 11/11/18 11/11/18 11/12/18 11:59 23:59 11:59 Intake Total 400 / 640 240 / 640 240 / 240 Output Total 1400 / 1400 725 / 725 Balance -1000 / -760 240 / -760 -485 / -485 Intake: Oral 400 / 640 240 / 640 240 / 240 Output: Urine 1400 / 1400 725 / 725 Other: Urine Color Yellow Yellow Urine Appearance Clear Clear Urine Odor Normal Normal Voiding Methods Urinal Toilet PFS Social History Smoking/Tobacco Use Status: Never Alcohol Intake: current Alcohol Intake frequency: a few times a week Drug use: Never Frequency: does not exercise Nancy/Lutheran: No preference Special nancy needs: No
--- NOTE | 2018-11-12 08:22 | W.PM.DS.N ---
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 His postoperative course was essentially unremarkable. It was complicated by chronic constipation which finally resolved by the a.m. of 11/11/2018. He was maintained on prophylactic intravenous antibiotics for 24 hours. His Page catheter was maintained for 48 hours and then removed. He had no dysuria or signs of urinary tract infection but because of his constipation I elected to perform a post catheter removal urinalysis which was unremarkable. He was maintained on Lovenox prophylaxis 30 mg subcu twice daily. He had no signs of wound problems or complications with a benign-appearing wound. He had serial hemoglobin and basic metabolic panel studies done for 48 hours and they were unremarkable with a hemoglobin stabilized in the mid tens. He will be discharged on 11/12/2018 after a.m. PT and will follow up with outpatient physical therapy at the end of the week around 11/14 through 11/16. Home Meds and New Rx's Prescriptions: No Action triamcinolone acetonide 0.1 % cream 1 applic TP TID PRN PRNRF: 0 lisinopril-hydrochlorothiazide [Zestoretic] 20-12.5 mg tablet 1 tab PO DAILY Qty: 90 RF: 0 atorvastatin 20 mg tablet 20 mg PO DAILY Qty: 90 RF: 0 hydrocodone-acetaminophen [[place]] 5-325 mg tablet 1 tab PO Q4H MDD 8 Qty: 18 RF: 0 hydrocodone-acetaminophen [[place]] 5-325 mg tablet 1 tab PO Q4H MDD 8 PRN (Reason: pain) Qty: 18 RF: 0 hydrocodone-acetaminophen [[place]] 5-325 mg tablet 1 tab PO Q4H MDD 8 Qty: 18 RF: 0 acetaminophen [Tylenol 8 Hour] 650 mg tablet extended release 650 mg PO Q6H PRN PRN (Reason: pain) Qty: 14 RF: 0 ibuprofen 600 mg tablet 600 mg PO QID PRN (Reason: pain) Qty: 14 RF: 0 Discharge Instructions Additional Instructions: Use your new knee. You may place her full weight upon it. Use your walker for balance and prevent falls. Physical therapy will let you know when it safe to go to a cane in her left, that is non-operated side. Usual elastic stockings during the day. They help prevent blood clots. Using baby powder will assist in placing them on. The elastic stockings may be off at nighttime for sleeping. You should continue using your Cryo/Cuff to help minimize pain and swelling. This is especially helpful before and after physical therapy. You may get your wound wet in the shower with soap and water. Gently pat the duyen dry and leave them open to the air. If your duyen catch on your clothing you may cover them with a light layer of gauze. Take your usual medications as before. In addition take a baby aspirin, 81 mg twice daily for the next 2 weeks. This also helps prevent blood clots. Take Tylenol and/or ibuprofen for milder pain. They are metabolized differently so that they may be taken simultaneously without toxic effects. Take hydrocodone(Norco5/325 mg) 1-2 every 4-6 hours for more serious pain. [facility] regulations limit the amount of hydrocodone that can be prescribed to 18 tablets. Follow-up with [facility] physical therapy on [facility] in [facility] at the end of this week. Follow-up with Dr. Leal in 1 week for staple removal. Stand Alone Forms: Nursing Discharge Form Activity:: Activity as Tolerated Equipment/Supplies:: Walker Diet:: As Tolerated Discharge Orders Discharge Orders: Discharge Order (Routine); Ordered 11/12/18 Ordered By: Daryn Leal DS: Data Vitals/I&O Vitals and I&O: Vital Signs Temperature 97.0 F L 11/12/18 07:21 Temperature Source Tympanic 11/12/18 07:21 Pulse 69 11/12/18 07:21 Pulse Rhythm Regular 11/12/18 08:02 Respiratory Rate 18 11/12/18 07:21 Respiratory Effort 11/12/18 08:02 Respiratory Depth Normal 11/12/18 08:02 Respiratory Pattern Normal 11/12/18 08:02 Blood Pressure 129/71 11/12/18 07:21 Pulse Oximetry 95 11/12/18 07:21 Respiratory End-tidal CO2 33 11/07/18 11:15 Oxygen Delivery Method Room Air 11/12/18 07:21 Oxygen Flow Rate 0 11/12/18 07:21 Pain Level 2 11/12/18 08:03 Comment 11/12/18 04:00 Intake & Output 11/11/18 11/11/18 11/12/18 11:59 23:59 11:59 Intake Total 400 / 640 240 / 640 240 / 240 Output Total 1400 / 1400 725 / 725 Balance -1000 / -760 240 / -760 -485 / -485 Intake: Oral 400 / 640 240 / 640 240 / 240 Output: Urine 1400 / 1400 725 / 725 Other: Urine Color Yellow Yellow Urine Appearance Clear Clear Urine Odor Normal Normal Voiding Methods Urinal Toilet PFS Social History Smoking/Tobacco Use Status: Never Alcohol Intake: current Alcohol Intake frequency: a few times a week Drug use: Never Frequency: does not exercise Nancy/Roman Catholic: No preference Special nancy needs: No
--- NOTE | 2018-11-12 08:27 | DSE_ITS ---
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 His postoperative course was essentially unremarkable. It was complicated by chronic constipation which finally resolved by the a.m. of 11/11/2018. He was maintained on prophylactic intravenous antibiotics for 24 hours. His Page catheter was maintained for 48 hours and then removed. He had no dysuria or signs of urinary tract infection but because of his constipation I elected to perform a post catheter removal urinalysis which was unremarkable. He was maintained on Lovenox prophylaxis 30 mg subcu twice daily. He had no signs of wound problems or complications with a benign-appearing wound. He had serial hemoglobin and basic metabolic panel studies done for 48 hours and they were unremarkable with a hemoglobin stabilized in the mid tens. He will be discharged on 11/12/2018 after a.m. PT and will follow up with outpatient physical therapy at the end of the week around 11/14 through 11/16. Home Meds and New Rx's Prescriptions: No Action triamcinolone acetonide 0.1 % cream 1 applic TP TID PRN PRNRF: 0 lisinopril-hydrochlorothiazide [Zestoretic] 20-12.5 mg tablet 1 tab PO DAILY Qty: 90 RF: 0 atorvastatin 20 mg tablet 20 mg PO DAILY Qty: 90 RF: 0 hydrocodone-acetaminophen [[place]] 5-325 mg tablet 1 tab PO Q4H MDD 8 Qty: 18 RF: 0 hydrocodone-acetaminophen [[place]] 5-325 mg tablet 1 tab PO Q4H MDD 8 PRN (Reason: pain) Qty: 18 RF: 0 hydrocodone-acetaminophen [[place]] 5-325 mg tablet 1 tab PO Q4H MDD 8 Qty: 18 RF: 0 acetaminophen [Tylenol 8 Hour] 650 mg tablet extended release 650 mg PO Q6H PRN PRN (Reason: pain) Qty: 14 RF: 0 ibuprofen 600 mg tablet 600 mg PO QID PRN (Reason: pain) Qty: 14 RF: 0 Discharge Instructions Additional Instructions: Use your new knee. You may place her full weight upon it. Use your walker for balance and prevent falls. Physical therapy will let you know when it safe to go to a cane in her left, that is non-operated side. Usual elastic stockings during the day. They help prevent blood clots. Using baby powder will assist i n placing them on. The elastic stockings may be off at nighttime for sleeping. You should continue using your Cryo/Cuff to help minimize pain and swelling. This is especially helpful before and after physical therapy. You may get your wound wet in the shower with soap and water. Gently pat the duyen dry and leave them open to the air. If your duyen catch on your clothing you may cover them with a light layer of gauze. Take your usual medications as before. In addition take a baby aspirin, 81 mg twice daily for the next 2 weeks. This also helps prevent blood clots. Take Tylenol and/or ibuprofen for milder pain. They are metabolized differently so that they may be taken simultaneously without toxic effects. Take hydrocodone(Norco5/325 mg) 1-2 every 4-6 hours for more serious pain. [facility] regulations limit the amount of hydrocodone that can be prescribed to 18 tablets. Follow-up with [facility] physical therapy on [facility] in [facility] at the end of this week. Follow-up with Dr. Leal in 1 week for staple removal. Stand Alone Forms: Nursing Discharge Form Activity:: Activity as Tolerated Equipment/Supplies:: Walker Diet:: As Tolerated Discharge Orders Discharge Orders: Discharge Order (Routine); Ordered 11/12/18 Ordered By: Daryn Leal DS: Data Vitals/I&O Vitals and I&O: Vital Signs Temperature 97.0 F L 11/12/18 07:21 Temperature Source Tympanic 11/12/18 07:21 Pulse 69 11/12/18 07:21 Pulse Rhythm Regular 11/12/18 08:02 Respiratory Rate 18 11/12/18 07:21 Respiratory Effort 11/12/18 08:02 Respiratory Depth Normal 11/12/18 08:02 Respiratory Pattern Normal 11/12/18 08:02 Blood Pressure 129/71 11/12/18 07:21 Pulse Oximetry 95 11/12/18 07:21 Respiratory End-tidal CO2 33 11/07/18 11:15 Oxygen Delivery Method Room Air 11/12/18 07:21 Oxygen Flow Rate 0 11/12/18 07:21 Pain Level 2 11/12/18 08:03 Comment 11/12/18 04:00 Intake & Output 11/11/18 11/11/18 11/12/18 11:59 23:59 11:59 Intake Total 400 / 640 240 / 640 240 / 240 Output Total 1400 / 1400 725 / 725 Balance -1000 / -760 240 / -760 -485 / -485 Intake: Oral 400 / 640 240 / 640 240 / 240 Output: Urine 1400 / 1400 725 / 725 Other: Urine Color Yellow Yellow Urine Appearance Clear Clear Urine Odor Normal Normal Voiding Methods Urinal Toilet PFS Social History Smoking/Tobacco Use Status: Never Alcohol Intake: current Alcohol Intake frequency: a few times a week Drug use: Never Frequency: does not exercise Nancy/Confucianist: No preference Special nancy needs: No
--- NOTE | 2018-11-12 08:53 | PDOC.CMDIS ---
LACE Index Scoring Tool - Questions: Length of Stay (in days): 4 - 6 Acuity (Admit via E.D.?): No E.D. Visits: 0 - Answers: Total Score: 4 Risk of Readmission: Low Risk Care Management Discharge Reason for Hospitalization: Right Total Knee Arthroplasty Discharge Plan: Esvin will return home when ready per MD. He will follow up with Dr. Leal, his PCP and his plan of care including activity restrictions and medication recommendations. He reports planning to attend OP/PT when cleared by MD. He will transport home via private vehicle with his , Darcie. Patient/Family Education Needs: Review discharge instructions, discuss Ask Me Three.
--- NOTE | 2018-11-12 09:14 | W.PM.DS.N ---
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 His postoperative course was essentially unremarkable. It was complicated by chronic constipation which finally resolved by the a.m. of 11/11/2018. He was maintained on prophylactic intravenous antibiotics for 24 hours. His Page catheter was maintained for 48 hours and then removed. He had no dysuria or signs of urinary tract infection but because of his constipation I elected to perform a post catheter removal urinalysis which was unremarkable. He was maintained on Lovenox prophylaxis 30 mg subcu twice daily. He had no signs of wound problems or complications with a benign-appearing wound. He had serial hemoglobin and basic metabolic panel studies done for 48 hours and they were unremarkable with a hemoglobin stabilized in the mid tens. He will be discharged on 11/12/2018 after a.m. PT and will follow up with outpatient physical therapy at the end of the week around 11/14 through 11/16. Home Meds and New Rx's Prescriptions: No Action triamcinolone acetonide 0.1 % cream 1 applic TP TID PRN PRNRF: 0 lisinopril-hydrochlorothiazide [Zestoretic] 20-12.5 mg tablet 1 tab PO DAILY Qty: 90 RF: 0 atorvastatin 20 mg tablet 20 mg PO DAILY Qty: 90 RF: 0 hydrocodone-acetaminophen [[place]] 5-325 mg tablet 1 tab PO Q4H MDD 8 Qty: 18 RF: 0 hydrocodone-acetaminophen [[place]] 5-325 mg tablet 1 tab PO Q4H MDD 8 PRN (Reason: pain) Qty: 18 RF: 0 hydrocodone-acetaminophen [[place]] 5-325 mg tablet 1 tab PO Q4H MDD 8 Qty: 18 RF: 0 acetaminophen [Tylenol 8 Hour] 650 mg tablet extended release 650 mg PO Q6H PRN PRN (Reason: pain) Qty: 14 RF: 0 ibuprofen 600 mg tablet 600 mg PO QID PRN (Reason: pain) Qty: 14 RF: 0 Discharge Instructions Instructions: Knee Arthroscopy (DC) Additional Instructions: Use your new knee. You may place her full weight upon it. Use your walker for balance and prevent falls. Physical therapy will let you know when it safe to go to a cane in her left, that is non-operated side. Usual elastic stockings during the day. They help prevent blood clots. Using baby powder will assist in placing them on. The elastic stockings may be off at nighttime for sleeping. You should continue using your Cryo/Cuff to help minimize pain and swelling. This is especially helpful before and after physical therapy. You may get your wound wet in the shower with soap and water. Gently pat the duyen dry and leave them open to the air. If your duyen catch on your clothing you may cover them with a light layer of gauze. Take your usual medications as before. In addition take a baby aspirin, 81 mg twice daily for the next 2 weeks. This also helps prevent blood clots. Take Tylenol and/or ibuprofen for milder pain. They are metabolized differently so that they may be taken simultaneously without toxic effects. Take hydrocodone(Norco5/325 mg) 1-2 every 4-6 hours for more serious pain. [facility] regulations limit the amount of hydrocodone that can be prescribed to 18 tablets. Follow-up with [facility] physical therapy on [facility] in [facility] at the end of this week. Follow-up with Dr. Leal in 1 week for staple removal. Stand Alone Forms: Nursing Discharge Form Referrals: Daryn Leal MD [ [facility] STAFF PHYSICIAN] - 11/20/18 11:40 am Activity:: Activity as Tolerated Equipment/Supplies:: Walker Diet:: As Tolerated Discharge Orders Discharge Orders: Discharge Order (Routine); Ordered 11/12/18 Ordered By: Daryn Leal Discharge Data Discharge Date/Time-TO BE ENTERED AT DEPARTURE: 11/12/18 11:27 DS: Data Vitals/I&O Vitals and I&O: Vital Signs Temperature 97.0 F L 11/12/18 07:21 Temperature Source Tympanic 11/12/18 07:21 Pulse 69 05/13/19 07:21 Pulse Rhythm Regular 11/12/18 08:02 Respiratory Rate 18 11/12/18 07:21 Respiratory Effort 11/12/18 08:02 Respiratory Depth Normal 11/12/18 08:02 Respiratory Pattern Normal 11/12/18 08:02 Blood Pressure 129/71 11/12/18 07:21 Pulse Oximetry 95 11/12/18 07:21 Respiratory End-tidal CO2 33 11/07/18 11:15 Oxygen Delivery Method Room Air 11/12/18 07:21 Oxygen Flow Rate 0 11/12/18 07:21 Pain Level 2 11/12/18 08:03 Comment 11/12/18 04:00 Intake & Output 11/11/18 11/11/18 11/12/18 11:59 23:59 11:59 Intake Total 400 / 640 240 / 640 240 / 240 Output Total 1400 / 1400 725 / 725 Balance -1000 / -760 240 / -760 -485 / -485 Intake: Oral 400 / 640 240 / 640 240 / 240 Output: Urine 1400 / 1400 725 / 725 Other: Urine Color Yellow Yellow Urine Appearance Clear Clear Urine Odor Normal Normal Voiding Methods Urinal Toilet [facility] Social History Smoking/Tobacco Use Status: Never Alcohol Intake: current Alcohol Intake frequency: a few times a week Drug use: Never Frequency: does not exercise Nancy/Congregational: No preference Special nancy needs: No
--- NOTE | 2018-11-12 09:41 | PT.INDS ---
Date of service: 11/12/18 Time of Service: 09:11 PT Notes Inpatient Physical Therapy Discharge Summary Dates: 11/12/2018 Dates of Service: 11/08/2018 through 11/11/2018 This is a clinical summary of skilled PT services provided on the dates listed above. No charge was made in the completion of this documentation. Referring Doctor: Daryn Leal MD PT Orders: PT CONSULT: Right total knee arthroplasty. Up to chair weightbearing as tolerated on right with a walker. Patient may get up today if spinal has worn off it otherwise, patient be seen in bed and try CPM protocol along with cryocuff. Precautions: Fall. Standard. WBAT on right LE. Knee immobilizer on when OOB. Patient Profile/Admitting Diagnosis: Patient is a 78-year-old male with severe degenerative joint disease status post right knee total arthroplasty referred to physical therapy for functional mobility training, strengthening exercises, and gait and balance training. PMHX: Medical History Hyperlipidemia Hypertension Surgical History Colonoscopy - MAC Open Carpal Tunnel release Repair of inguinal hernia Social History/Home Situation: Patient lives with in a 1-floor house with a ramp to enter into their bedroom. He was independent with all aspects of ADLs without the need for use of an assistive ambulatory device nor adaptive equipment. Current Functional Limitations: Need for assistance in performing all transfers and ambulation tasks using FWW Equipment Owned/DME: FWW, bedside commode, grab bars, shower chair Subjective: Patient pleasant and cooperative. He is agreeable to a PT treatment. . Objective: General Observation: Patient seen resting on recliner. JAVIER wraps removed on right LE. Knee immobilizer off. Anti-DVT pumps off to both legs. IV off in the right UE. Cryocuff on right knee. Mental Status: Alert and oriented x3 Pain: 3/10 at rest and 5/10 with weight-bearing. ROM: Right Upper Extremity: Shoulder Flexion WFL. Shoulder abduction WFL. Elbow flexion WFL. Wrist flexion WFL. Functional opening and closing of hand WFL. Left Upper Extremity: Shoulder Flexion WFL. Shoulder abduction WFL. Elbow flexion WFL. Wrist flexion WFL. Functional opening and closing of hand WFL. Right Lower Extremity: Hip flexion 0 to 90 degrees. Hip abduction 0-20. Knee flexion -12 through 115 in supine range limited by mild discomfort. Ankle dorsiflexion WFL. Ankle plantarflexion WFL. Left Lower Extremity: Hip flexion WFL. Hip abduction WFL. Knee flexion WFL. Ankle dorsiflexion WFL. Ankle plantarflexion WFL. Strength: Right Upper Extremity: Shoulder flexors 5/5. Shoulder abductors 5/5. Elbow flexors 5/5. Elbow extensors 5/5. Merchandise Stocker strong. Left Upper Extremity: Shoulder flexors 5/5. Shoulder abductors 5/5. Elbow flexors 5/5. Elbow extensors 5/5. Merchandise Stocker strong. Right Lower Extremity: Hip flexors 3-/5. Hip abductors 3-/5. Knee flexors 3-/5. Knee extensors 3/5. Ankle dorsiflexors 4/5. Ankle plantarflexors 4/5. Left Lower Extremity:Hip flexors 5/5. Hip abductors 5/5. Knee flexors 5/5. Knee extensors 5/5. Ankle dorsiflexors 5/5. Ankle plantarflexors 5/5. Sensation: Intact as to pain and pressure on B LE. Bed Mobility/Transfers: Rolling SBA Supine to sit SBA Sit to supine SBA Sit to stand SBA Stand to sit SBA Bed to chair SBA Chair to bed SBA Gait: Patient was able to tolerate surface ambulation using FWW for 200 feet with 2 turns using step-through gait pattern, with minimal cues given for walker/management. Pain level went up to 5/10 with WB. No dizziness nor headache was reported. Patient was advised to raise up walker one notch up so he has more erct trunk alignment but he states that he is fine as he tends to put more weight on the R LE with a higher walker height. Balance: Static Sitting: Good Dynamic Sitting: Good Static Standing: Fair Dynamic Standing: Fair Assessment: Patient is a 78-year-old male with severe degenerative joint disease status post right knee total arthroplasty. Patient presents with clinical signs and symptoms consistent with current/admitting diagnoses and postoperative status that have resulted to mobility limitations, gait instability, generalized weakness, and impairment of motor control as demonstrated by the following impairment level findings: 1. Decreased strength to R LE major muscle groups 2. Impaired sitting/standing balance 3. Impaired activity tolerance 4. Limitation of joint range of motion in right knee and hip joints Impairments are contributing to the following functional limitations: 1. Dependent bed mobility skills 2. Increased dependence with transfers 3. Inability to safely ambulate without assistive device and physical assistance 4. Increase completion time for mobility ADL performance 5. Increased fall risk Goals: Goals X1 week 1. Supine-Sit independent NOT MET 2. Sit-Supine independent NOT MET 3. Sit-Stand independent NOT MET 4. Stand-Sit independent NOT MET 5. Bed-Chair independent NOT MET 6. Chair-Bed independent NOT MET 7. Independent gait on level surface with use of least restrictive device for at least 300 feet without report of pain nor dyspnea NOT MET 8. Independent with home exercise program NOT MET 9. Good static and dynamic standing balance/tolerance NOT MET DISCHARGE RECOMMENDATIONS: Patient will benefit from out-patient physical therapy services in order to progress mobility level and assistive device, assess home safety, establish/implement a functional maintenance program for strengthening and fall reduction. No equipment needs at this time. TREATMENT CODE/TIME: 33599 for 25 minutes beginning at 9:11 AM. Thank you for this referral. Rizwana David, PT, DPT, CLT [facility]
--- NOTE | 2018-11-13 07:01 | DSE_ITS ---
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 His postoperative course was essentially unremarkable. It was complicated by chronic constipation which finally resolved by the a.m. of 11/11/2018. He was maintained on prophylactic intravenous antibiotics for 24 hours. His Page catheter was maintained for 48 hours and then removed. He had no dysuria or signs of urinary tract infection but because of his constipation I elected to perform a post catheter removal urinalysis which was unremarkable. He was maintained on Lovenox prophylaxis 30 mg subcu twice daily. He had no signs of wound problems or complications with a benign-appearing wound. He had serial hemoglobin and basic metabolic panel studies done for 48 hours and they were unremarkable with a hemoglobin stabilized in the mid tens. He will be discharged on 11/12/2018 after a.m. PT and will follow up with outpatient physical therapy at the end of the week around 11/14 through 11/16. Home Meds and New Rx's Prescriptions: No Action triamcinolone acetonide 0.1 % cream 1 applic TP TID PRN PRNRF: 0 lisinopril-hydrochlorothiazide [Zestoretic] 20-12.5 mg tablet 1 tab PO DAILY Qty: 90 RF: 0 atorvastatin 20 mg tablet 20 mg PO DAILY Qty: 90 RF: 0 hydrocodone-acetaminophen [[place]] 5-325 mg tablet 1 tab PO Q4H MDD 8 Qty: 18 RF: 0 hydrocodone-acetaminophen [[place]] 5-325 mg tablet 1 tab PO Q4H MDD 8 PRN (Reason: pain) Qty: 18 RF: 0 hydrocodone-acetaminophen [[place]] 5-325 mg tablet 1 tab PO Q4H MDD 8 Qty: 18 RF: 0 acetaminophen [Tylenol 8 Hour] 650 mg tablet extended release 650 mg PO Q6H PRN PRN (Reason: pain) Qty: 14 RF: 0 ibuprofen 600 mg tablet 600 mg PO QID PRN (Reason: pain) Qty: 14 RF: 0 Discharge Instructions Instructions: Knee Arthroscopy (DC) Additional Instructions: Use your new knee. You may place her full weight upon it. Use your walker for balance and prevent falls. Physical therapy will let you know when it safe to go to a cane in her left, that is non-operated side. Usual elastic stockings during the day. They help prevent blood clots. Using baby powder will assist in placing them on. The elastic stockings may be off at nighttime for sleeping. You should continue using your Cryo/Cuff to help minimize pain and swelling. This is especially helpful before and after physical therapy. You may get your wound wet in the shower with soap and water. Gently pat the duyen dry and leave them open to the air. If your duyen catch on your clothing you may cover them with a light layer of gauze. Take your usual medications as before. In addition take a baby aspirin, 81 mg twice daily for the next 2 weeks. This also helps prevent blood clots. Take Tylenol and/or ibuprofen for milder pain. They are metabolized differently so that they may be taken simultaneously without toxic effects. Take hydrocodone(Norco5/325 mg) 1-2 every 4-6 hours for more serious pain. [facility] [place] that can be prescribed to 18 tablets. Follow-up with [facility] at the end of this week. Follow-up with Dr. Leal in 1 week for staple removal. Stand Alone Forms: Nursing Discharge Form Referrals: Daryn Leal MD [ [facility] STAFF PHYSICIAN] - 11/20/18 11:40 am Activity:: Activity as Tolerated Equipment/Supplies:: Walker Diet:: As Tolerated Discharge Orders Discharge Orders: Discharge Order (Routine); Ordered 11/12/18 Ordered By: Daryn Leal Discharge Data Discharge Date/Time-TO BE ENTERED AT DEPARTURE: 11/12/18 11:27 DS: Data Vitals/I&O Vitals and I&O: Vital Signs Temperature 97.0 F L 11/12/18 07:21 Temperature Source Tympanic 11/12/18 07:21 Pulse 69 05/13/19 07:21 Pulse Rhythm Regular 11/12/18 08:02 Respiratory Rate 18 11/12/18 07:21 Respiratory Effort 11/12/18 08:02 Respiratory Depth Normal 11/12/18 08:02 Respiratory Pattern Normal 11/12/18 08:02 Blood Pressure 129/71 11/12/18 07:21 Pulse Oximetry 95 11/12/18 07:21 Respiratory End-tidal CO2 33 11/07/18 11:15 Oxygen Delivery Method Room Air 11/12/18 07:21 Oxygen Flow Rate 0 11/12/18 07:21 Pain Level 2 11/12/18 08:03 Comment 11/12/18 04:00 Intake & Output 11/11/18 11/11/18 11/12/18 11:59 23:59 11:59 Intake Total 400 / 640 240 / 640 240 / 240 Output Total 1400 / 1400 725 / 725 Balance -1000 / -760 240 / -760 -485 / -485 Intake: Oral 400 / 640 240 / 640 240 / 240 Output: Urine 1400 / 1400 725 / 725 Other: Urine Color Yellow Yellow Urine Appearance Clear Clear Urine Odor Normal Normal Voiding Methods Urinal Toilet [facility] Social History Smoking/Tobacco Use Status: Never Alcohol Intake: current Alcohol Intake frequency: a few times a week Drug use: Never Frequency: does not exercise Nancy/Holiness: No preference Special nancy needs: No
== END 2018-11-12 11:27 | disposition home or self-care (01) | DRG 470 ==
LOC: PDS 09:38 → MS 10:43
PROVIDERS: Admitting Provider Orthopaedic Surgery; PCP Family Medicine; Visit Provider Orthopaedic Surgery
PROC: 0SRC0J9 Replacement of Right Knee Joint with Synthetic Substitute, Cemented, Open Approach (ICD-10-PCS; CPT 27447; principal; 2018-11-07 07:30)
DX: M17.11 Unilateral primary osteoarthritis, right knee (principal); M21.161 Varus deformity, not elsewhere classified, right knee; M24.561 Contracture, right knee; Z96.651 Presence of right artificial knee joint; E78.5 Hyperlipidemia, unspecified; I10 Essential (primary) hypertension; G89.18 Other acute postprocedural pain; K59.03 Drug induced constipation; T39.1X5A Adverse effect of 4-Aminophenol derivatives, initial encounter; Z23 Encounter for immunization
CPT/HCPCS: 27447; 36415; 76942; 80048; 85027; 97110; 97162; 97530; NC; 73560; 81003; J0690; J1100; J1650; J2250; J2370; J2405; J3010; L1830

== ENCOUNTER → 2018-11-20 11:08 | Outpatient (BNVA) | payer MEDICARE, SELFPAY | PROVIDERS: PCP Family Medicine; Referring Provider Family Medicine; Visit Provider Orthopaedic Surgery | DX: Z47.1 Aftercare following joint replacement surgery (principal); Z96.651 Presence of right artificial knee joint ==

== ENCOUNTER → 2018-12-11 10:02 | Outpatient (BNVA) | payer MEDICARE, SELFPAY | PROVIDERS: PCP Family Medicine; Referring Provider Family Medicine; Visit Provider Orthopaedic Surgery | DX: Z47.1 Aftercare following joint replacement surgery (principal); Z96.651 Presence of right artificial knee joint; I10 Essential (primary) hypertension ==

== ENCOUNTER → 2019-01-07 14:25 | Outpatient (BNVA) | payer MEDICARE, SELFPAY | PROVIDERS: PCP Family Medicine; Referring Provider Family Medicine; Visit Provider Orthopaedic Surgery | DX: Z47.1 Aftercare following joint replacement surgery (principal); Z96.651 Presence of right artificial knee joint; W19.XXXA Unspecified fall, initial encounter ==

== ENCOUNTER 2019-06-17 01:04 | Outpatient (CLI) | payer MEDICARE, SELFPAY ==
--- NOTE | 2019-06-17 08:30 | DI.MRI_ITS ---
EXAM: MR LUMBAR SPINE WO CLINICAL HISTORY: spinal stenosis of lumbar region, foraminal stenosis lumbar region,M48.061.,BIOMEC HANICAL LESIONS OF LUMBAR REGION, M99.83 TECHNIQUE: Multiplanar multisequence MRI was performed. COMPARISON: MRI - LUMBAR SPINE WO CONTRAST from 02/09/2015 FINDINGS: The conus medullaris appears normal and terminates at T12-L1. The T12-L1 disc shows minimal bulging. There is moderate loss of disc height and concentric disc bulging at L1-2. There are facet degenera tive changes and ligamentous hypertrophy producing mild central canal stenosis. At L2-3, there is br oad-based disc bulging and small endplate osteophytes as well as facet degenerative changes and ligam entous hypertrophy combining to produce mild to moderate central canal stenosis and mild right neural foraminal narrowing. At L3-4, there is broad-based disc bulging. There are facet joint degenerativ e changes and ligamentous hypertrophy combining to produce moderate to severe central canal stenosis as well as moderate to severe bilateral neural foraminal narrowing. At L4-5, there is mild loss of d isc height. There is marked broad-based disc osteophytes as well as marked ligamentous hypertrophy a nd facet degenerative changes combining to produce severe central canal stenosis as well as severe bi lateral neural foraminal. The findings have progressed since the previous exam. At L5-S1, there is posterior disc bulging eccentric toward the right. There are facet degenerative changes and ligament ous hypertrophy causing mild central canal stenosis. There is severe left neural foraminal narrowing and moderate to severe right neural foraminal narrowing. IMPRESSION: Severe multilevel degenerative disc changes and facet degenerative changes, greatest at L4-5 where th ere is severe central canal stenosis as well as severe neural foraminal narrowing.
== END 2019-06-17 01:24 ==
PROVIDERS: PCP Family Medicine; Visit Provider Family Medicine
DX: M48.061 Spinal stenosis, lumbar region without neurogenic claudication (principal); M99.83 Other biomechanical lesions of lumbar region; M51.37 Other intervertebral disc degeneration, lumbosacral region; M47.817 Spondylosis without myelopathy or radiculopathy, lumbosacral region
CPT/HCPCS: 72148

== ENCOUNTER 2019-07-08 02:47 | Outpatient (CLI) | payer MEDICARE, SELFPAY ==
[2019-07-08 07:43] LABS: HCT 39.1 % (40.0-50.0); HGB 13.3 g/dL (13.5-17.5); Mean Corpuscular Hemoglobin 30.9 pg (27.0-33.0); Mean Corpuscular Volume 90.7 fL (80-95); Mean Platelet Volume 8.5 fL (8.0-11.0); Platelet Count 293 x1000/uL (130-400); RBC 4.31 m/cumm (4.50-6.00); RBC Distribution Width 12.3 % (11.8-14.1); White Blood Cell Count 6.42 k/cumm (4.4-10.8)
[2019-07-08 08:53] LABS: ALT 22 U/L (16-63); AST 18 U/L (15-37); Albumin 3.8 g/dL (3.4-5.0); Alkaline Phosphatase 95 U/L (46-116); Anion Gap 10.9 mmol/L (3-11); BUN 18 mg/dL (7-18); Bilirubin, Total 0.5 mg/dL (0.2-1.0); CO2 27.1 mmol/L (21.0-32.0); CREATININE 0.82 mg/dL (0.70-1.30); Calcium 8.7 mg/dL (8.5-10.1); Chloride 103 mmol/L (98-107); Glucose 93 mg/dL (74-106); Potassium 4.6 mmol/L (3.5-5.1); Sodium 141 mmol/L (136-145); Total Protein 6.9 g/dL (6.4-8.2)
== END 2019-07-08 03:07 ==
PROVIDERS: PCP Family Medicine; Visit Provider Family Medicine
DX: I10 Essential (primary) hypertension (principal); G56.03 Carpal tunnel syndrome, bilateral upper limbs
CPT/HCPCS: 36415; 80053; 85027

== ENCOUNTER 2019-08-13 11:40 | Emergency (ER) | payer MEDICARE, SELFPAY ==
[2019-08-13 11:43] VITALS: PULSE 85; RESP 16; TEMP 36.8; O2SAT 97
[2019-08-13] MEDS: Lidocaine 2% Jelly 11 ML SYR UR (12:01)
[2019-08-13 12:49] VITALS: BP 107/59; PULSE 84
[2019-08-13 12:54] LABS: Bilirubin Negative (Negative); Blood Moderate (Negative); Clarity Clear (Clear); Glucose Negative (Negative); Ketones Negative (Negative); Leukocyte Esterase Negative (Negative); Nitrite Negative (Negative); Urobilinogen 0.2 EU/dL (Up TO 0.2)
[2019-08-13 13:00] LABS: Bacteria Negative HPF (Negative); C & S Indicated? No; Casts Negative LPF (Negative); Crystals Negative HPF (Negative); Epithelial Cells Negative HPF (Negative); Mucus Negative (Negative); RBC >50 HPF (0-2); WBC 0-2 HPF (0-5)
--- NOTE | 2019-08-13 13:41 | W.ED.GENAD ---
Discharge Plan Disposition Patient Disposition: HOME Condition: Stable Discharge Details Chief Complaint: Urinary Clinical Impression: Acute urinary retention Primary Care Provider: Bj Brasher ED Provider: Toy Dias Home Meds and New Rx's Prescriptions: Continued triamcinolone acetonide 0.1 % cream 1 applic TP TID PRN PRNRF: 0 atorvastatin 20 mg tablet 20 mg PO DAILY Qty: 90 RF: 0 acetaminophen [Tylenol 8 Hour] 650 mg tablet extended release 650 mg PO Q6H PRN PRN (Reason: pain) Qty: 14 RF: 0 ibuprofen 600 mg tablet 600 mg PO QID PRN (Reason: pain) Qty: 14 RF: 0 Discharge Instructions Instructions: Urinary Retention in Men (ED) Additional Instructions: At this time there are no signs of infection. I spoke with your neurosurgery team, they have no further recommendations regarding your ER visit today and would like you to follow-up as already scheduled. Please watch for new or worsening symptoms and return to the ER for any concerns. I would like you to reach out to your primary care provider later today in an attempt to be evaluated by the end of the week for Page catheter removal. Discharge Data Discharge Date/Time-TO BE ENTERED AT DEPARTURE: 08/13/19 13:53 Medical Decision Making 79-year-old gentleman who presents with urinary retention status post surgery yesterday. He appears well, nontoxic. Neurologically intact. Bladder scanner completed, greater than 500 cc. Indwelling Page catheter placed. Will check urinalysis. No indication of cauda equina or infection. Will reach out to his surgical team for further instructions. I was able to speak with surgical SCHUYLER Ndiaye, who has no additional recommendations regarding his visit today, recommends that he follow-up as already scheduled, and have his primary care provider manage the Page catheter. This plan was discussed with patient and family who were comfortable with disposition and had no additional questions or concerns. Medical Records Medical records reviewed: Yes I reviewed the patient's medical records. Lab Data Lab results reviewed: Yes I reviewed the patient's lab results. Lab results narrative: Laboratory Tests Range/Units 08/13/19 12:45 Urine Color (Yellow) Yellow Urine Clarity (Clear) Clear Urine pH (5-8) 6.0 Ur Specific Morgan (1.005-1.025) 1.010 Urine Protein (Negative) mg/dL Negative Urine Ketones (Negative) mg/dL Negative Urine Blood (Negative) Moderate H Urine Nitrite (Negative) Negative Urine Bilirubin (Negative) Negative Urine Urobilinogen (Up TO 0.2) EU/dL 0.2 Ur Leukocyte Esterase (Negative) Negative Urine RBC (0-2) HPF >50 H Urine WBC (0-5) HPF 0-2 Ur Epithelial Cells (Negative) HPF Negative Urine Crystals (Negative) HPF Negative Urine Bacteria (Negative) HPF Negative Urine Casts (Negative) LPF Negative Urine Mucus (Negative) Negative Ur Culture Indicated? No Urine Glucose (Negative) mg/dL Negative Hematuria otherwise unremarkable HPI General Mode of arrival: ambulatory. Date/Time Provider Initiated Documentation: 08/13/19 11:40. Limitations to Documentation: no limitations. Information obtained by: patient. HPI Narrative: 79-year-old gentleman with a history of spinal stenosis, hypertension, hyperlipidemia, osteoarthritis, varicose veins, inguinal hernia, who actually had spinal stenosis surgery performed yesterday by Dr. Granda presents to the ER today for urinary retention. He reports abdominal fullness and moderate lower abdominal, suprapubic discomfort. He reports that he had a successful surgery yesterday, was able to urinate after the surgery, however has been unable to urinate today. Reports that he contact his surgical team and they recommended coming to the ER. Patient has no additional concerns or complaints. Denies fever, nausea, vomiting, any back pain whatsoever, numbness, tingling, weakness, bowel incontinence. Related Data Home Medications Medication Instructions Recorded Confirmed triamcinolone acetonide 1 applic TP TID PRN PRN 07/27/18 07/17/19 acetaminophen [Tylenol 8 Hour] 650 mg PO Q6H PRN PRN #14 tab 09/05/18 07/17/19 ibuprofen 600 mg PO QID PRN #14 tab 09/05/18 07/17/19 atorvastatin 20 mg tablet 20 mg PO DAILY #90 tab-cap 04/15/19 07/17/19 Previous Rx's Medication Instructions Recorded acetaminophen [Tylenol 8 Hour] 650 mg PO Q6H PRN PRN #14 tab 09/05/18 ibuprofen 600 mg PO QID PRN #14 tab 09/05/18 atorvastatin 20 mg tablet 20 mg PO DAILY #90 tab-cap 04/15/19 Allergies Allergy/AdvReac Type Severity Reaction Status Date / Time No Known Allergies Allergy Verified 07/17/19 08:59 General Stated Complaint: Urinary KJ: 3 Review of Systems Constitutional Constitutional: Denies chills, Denies fatigue, Denies fever(s) and Denies weakness Eyes Eyes: Denies other visual disturbances Cardiovascular Cardiovascular: Denies chest pain and Denies dyspnea Respiratory Respiratory: Denies dyspnea and Denies wheezing Gastrointestinal Gastrointestinal: Reports abdominal pain, Denies diarrhea, Denies nausea and Denies vomiting Genitourinary Genitourinary: Denies genital pain and Reports urinary hesitancy Musculoskeletal Musculoskeletal: Denies back pain and Denies tingling Neurologic Neurologic: Denies tingling, Denies paresthesias and Denies weakness Endocrine Endocrine: Denies fatigue Allergic/Immunologic Allergic/Immunologic: Denies wheezing PFSH Medical History Foraminal stenosis of lumbar region (Chronic) Hyperlipidemia Hypertension Surgical History Colonoscopy - MAC Open Carpal Tunnel release 06/02/15; LEFT, August/2017; RIGHT Repair of inguinal hernia RIGHT Family History Mother , age 69 Cancer Father , age 106 No problems noted. Maternal Grandfather , ACCIDENTAL age 90+ No problems noted. Paternal Grandfather , ACCIDENTAL age 90+ No problems noted. Maternal Grandmother , age 90+ No problems noted. Son No problems noted. Daughter No problems noted. Social History Smoking/Tobacco Use Status: Never Second Hand Exposure: Yes Alcohol Intake: current Alcohol Intake frequency: a few times a week Alcohol type: wine Drug use: Never Substance use type: does not use Caregiver/Support person: No Household members: significant other Housing: house Communication Needs: None Do you need help understanding health information?: Never Pets and animals: Yes Pets and animals: dog(s) Sexually active: Yes Do you think of yourself as: straight/heterosexual Current gender identity: male What is your relationship status?: living with partner How often do you talk on the phone with friends or family?: three or more times per week How often do you get together with friends or relatives?: three or more times per week How often do you attend episcopalian or latter day services?: decline to answer Do you belong to any clubs or organized social groups?: yes Panel score (0-1 are the most socially isolated patients): 3 What type of physical activity do you participate in: other Details: Dancing, physical work, gardening Duration: 60-90 minutes/day Frequency: does not exercise Nancy/Yazdanism: No preference Special nancy needs: No Seatbelt use: always Helmet use: No Drive intox or ride w/intox medical driver: No Do you feel safe at home: Yes Do you feel safe in your relationship?: Yes Exam Const General: cooperative, healthy appearing, comfortable and no acute distress Orientation: alert and awake HENMT Head: normal to inspection, normocephalic and atraumatic Mouth: moist mucous membranes Eyes Conjunctivae: conjunctivae normal Neck Neck: normal visual inspection, trachea midline and supple Resp Effort & Inspection: normal respiratory effort Auscultation: clear to auscultation bilaterally Cardio Rate: regular rate Rhythm: regular rhythm GI Inspection: normal to inspection Palpation: soft, no guarding, not rigid and tender (Mild suprapubic fullness and discomfort to moderate palpation) Auscultation: normal bowel sounds Rectal Exam: visual inspection normal, normal sphincter tone and No tenderness Male General Exam: Yes normal external exam and No tenderness Back/Spine/Pelvis Thoracic/Lumbar Spine: surgical scar(s) present (Appears well-healing, intact. No erythema, warmth, discomfort or drainage) Skin General skin exam: no rashes or lesions noted Neuro General: alert, awake, oriented x3, gait normal, tone normal, moves all extremities, normal light touch, pain and propioception and no focal motor deficits Gait: normal gait Motor: muscle tone normal throughout and strength 5/5 throughout Sensory Exam: no sensory deficits noted, perineum (Sensation intact) and other (Normal cremasterics reflex bilateral 2+) Extrem General: normal to inspection Course Vital Signs Vital signs: Vital Signs Temperature 36.8 C 08/13/19 11:43 Pulse 85 08/13/19 11:43 Respiratory Rate 16 08/13/19 11:43 Pulse Oximetry 97 08/13/19 11:43 Temperature 36.8 C 08/13/19 11:43 Temperature Source Skin 08/13/19 11:43 Pulse 84 08/13/19 12:49 Respiratory Rate 16 08/13/19 11:43 Respiratory Effort Non-Labored 08/13/19 12:07 Blood Pressure 107/59 L 08/13/19 12:49 Blood Pressure Position Sitting 08/13/19 11:43 Pulse Oximetry 97 08/13/19 11:43 Oxygen Delivery Method Room Air 08/13/19 11:43 Oxygen Flow Rate 0 08/13/19 11:43 Pain Level 8 08/13/19 11:43 Lab/Test Results Lab/Test Results: Laboratory Tests Range/Units 08/13/19 12:45 Urine Color (Yellow) Yellow Urine Clarity (Clear) Clear Urine pH (5-8) 6.0 Ur Specific Morgan (1.005-1.025) 1.010 Urine Protein (Negative) mg/dL Negative Urine Ketones (Negative) mg/dL Negative Urine Blood (Negative) Moderate H Urine Nitrite (Negative) Negative Urine Bilirubin (Negative) Negative Urine Urobilinogen (Up TO 0.2) EU/dL 0.2 Ur Leukocyte Esterase (Negative) Negative Urine RBC (0-2) HPF >50 H Urine WBC (0-5) HPF 0-2 Ur Epithelial Cells (Negative) HPF Negative Urine Crystals (Negative) HPF Negative Urine Bacteria (Negative) HPF Negative Urine Casts (Negative) LPF Negative Urine Mucus (Negative) Negative Ur Culture Indicated? No Urine Glucose (Negative) mg/dL Negative
[2019-08-13 13:54] VITALS: BP 113/58; PULSE 77; RESP 18; TEMP 36.6; O2SAT 100
[2019-08-13 14:00] VITALS: BP 113/58; PULSE 75; RESP 18; TEMP 36.4; O2SAT 97
== END 2019-08-13 13:53 | disposition home or self-care (01) ==
PROVIDERS: Emergency Provider Physician Assistant; PCP Family Medicine
DX: R33.8 Other retention of urine (principal); Y83.8 Other surgical procedures as the cause of abnormal reaction of the patient, or of later complication, without mention of misadventure at the time of the procedure; R10.30 Lower abdominal pain, unspecified; M48.07 Spinal stenosis, lumbosacral region; I10 Essential (primary) hypertension
CPT/HCPCS: 51702; 99283; 81003; 81015; 99284

== ENCOUNTER 2019-08-17 11:35 | Emergency (ER) | payer MEDICARE, SELFPAY ==
[2019-08-17 11:38] VITALS: BP 176/78; PULSE 83; TEMP 36.7; O2SAT 98
--- NOTE | 2019-08-17 12:45 | ED.GENADUL_ITS ---
Discharge Plan Disposition Patient Disposition: HOME Condition: Improving Discharge Details Chief Complaint: Urinary Clinical Impression: Acute urinary retention Primary Care Provider: Bj Brasher ED Provider: Zach Emery Home Meds and New Rx's Prescriptions: Continued lisinopril-hydrochlorothiazide 20-12.5 mg tablet 1 tab PO DAILY RF: 0 triamcinolone acetonide 0.1 % cream 1 applic TP TID PRN PRNRF: 0 atorvastatin 20 mg tablet 20 mg PO DAILY Qty: 90 RF: 0 acetaminophen [Tylenol 8 Hour] 650 mg tablet extended release 650 mg PO Q6H PRN PRN (Reason: pain) Qty: 14 RF: 0 ibuprofen 600 mg tablet 600 mg PO QID PRN (Reason: pain) Qty: 14 RF: 0 No Action tamsulosin [Flomax] 0.4 mg capsule 0.4 mg PO DAILY Qty: 14 RF: 0 Discharge Instructions Instructions: Urinary Retention in Men (ED), Page Catheter Placement and Care (ED) Additional Instructions: Please follow-up with your neurosurgeon. Call on Monday to arrange timely follow-up. Please follow-up with urology. Call on Monday to arrange follow-up this week. Please contact your primary care physician to arrange follow-up. Return to the ER for any worsening or new concerning symptoms. Referrals: Bj Brasher [Primary Care Provider] - Sam Bui MD [ [facility] STAFF PHYSICIAN] - Discharge Data Discharge Date/Time-TO BE ENTERED AT DEPARTURE: 08/17/19 13:53 Medical Decision Making 12:55 -- 79-year-old male returns with recurrent urinary retention 6 days status post laminectomy L2-L5. Patient very uncomfortable on arrival. A Page catheter was placed without difficulty by nursing and patient had immediate 900 mL pink tinge urinary output. Symptoms much improved. Considered cauda equina. Patient has no difficulty with controlling bowels, no weakness or numbness of his lower extremities. I will speak with patient's spinal neurosurgeon at . -- Spoke with Lala PAYAN covering for patient's neurosurgeon -I discussed ED presentation and course including my specific concerns. He discussed case with neurosurgeon and notes that there is no concern for nerve injury from surgery and recommends follow-up outpatient in clinic. Plan will be to maintain Page catheter and refer patient to urology and also follow-up with neurosurgeon. Disposition decision was made weighing the risks and benefits of hospitalization versus outpatient treatment, the risk for further decompensation, and the patient's wishes. The patient was stable and requested discharge. Prior to discharge, my usual and customary return precautions were reviewed with the patient - this included follow-up instructions and reason to return to the emergency department immediately if condition worsens, does not improve as expected, or other new concerns arise. HPI General Mode of arrival: ambulatory . Date/Time Provider Initiated Documentation: 08/17/19 11:36 . Limitations to Documentation: no limitations . Information obtained by: patient . HPI Narrative: 79-year-old male with multiple medical problems presents with chief complaint of urinary retention. Patient notes that he had surgery for spinal stenosis including L2-L5 laminectomy 6 days ago. He noticed inability to urinate postoperatively at home and came in here to the emergency department the following day for urinary retention. He had a Page catheter placed and was discharged to follow-up with PCP. He saw PCP on Monday (yesterday) who removed the Page catheter. He notes he was able to urinate only a small amount last night and now feels as though he is retaining urine again with inability to urinate. Symptoms are severe. Constant. No associated fever. No abdominal pain. No numbness or weakness. No incontinence of bowel movement. Related Data Home Medications Medication Instructions Recorded Confirmed triamcinolone acetonide 1 applic TP TID PRN PRN 07/27/18 08/19/19 acetaminophen [Tylenol 8 Hour] 650 mg PO Q6H PRN PRN #14 tab 09/05/18 08/19/19 ibuprofen 600 mg PO QID PRN #14 tab 09/05/18 08/19/19 atorvastatin 20 mg tablet 20 mg PO DAILY #90 tab-cap 04/15/19 08/19/19 lisinopril 20 1 tab PO DAILY 08/16/19 08/19/19 mg-hydrochlorothiazide 12.5 mg tablet tamsulosin 0.4 mg capsule 0.4 mg PO DAILY #14 cap 08/19/19 08/19/19 Previous Rx's Medication Instructions Recorded acetaminophen [Tylenol 8 Hour] 650 mg PO Q6H PRN PRN #14 tab 09/05/18 ibuprofen 600 mg PO QID PRN #14 tab 09/05/18 atorvastatin 20 mg tablet 20 mg PO DAILY #90 tab-cap 04/15/19 tamsulosin 0.4 mg capsule 0.4 mg PO DAILY #14 cap 08/19/19 Allergies Allergy/AdvReac Type Severity Reaction Status Date / Time No Known Allergies Allergy Verified 08/17/19 11:41 General Stated Complaint: Urinary KJ: 3 Review of Systems Constitutional Constitutional: Denies fever(s) Gastrointestinal Gastrointestinal: Denies nausea and Denies vomiting Genitourinary Genitourinary: Reports as per HPI Musculoskeletal Musculoskeletal: Denies back pain, Denies muscle weakness and Denies numbness Neurologic Neurologic: Denies focal weakness, Denies numbness, Denies sensory deficit and Denies paresthesias PFSH Medical History Foraminal stenosis of lumbar region (Chronic) Hyperlipidemia Hypertension Surgical History Colonoscopy - MAC Open Carpal Tunnel release 06/02/15; LEFT, August/2017; RIGHT Repair of inguinal hernia RIGHT Family History Mother , age 69 Cancer Father , age 106 No problems noted. Maternal Grandfather , ACCIDENTAL age 90+ No problems noted. Paternal Grandfather , ACCIDENTAL age 90+ No problems noted. Maternal Grandmother , age 90+ No problems noted. Son No problems noted. Daughter No problems noted. Social History Smoking/Tobacco Use Status: Never Second Hand Exposure: Yes Alcohol Intake: current Alcohol Intake frequency: a few times a week Alcohol type: wine Drug use: Never Substance use type: does not use Caregiver/Support person: No Household members: significant other Housing: house Communication Needs: None Do you need help understanding health information?: Never Pets and animals: Yes Pets and animals: dog(s) Sexually active: Yes Do you think of yourself as: straight/heterosexual Current gender identity: male What is your relationship status?: living with partner How often do you talk on the phone with friends or family?: three or more times per week How often do you get together with friends or relatives?: three or more times per week How often do you attend episcopal or rastafarian services?: decline to answer Do you belong to any clubs or organized social groups?: yes Panel score (0-1 are the most socially isolated patients): 3 What type of physical activity do you participate in: other Details: Dancing, physical work, gardening Duration: 60-90 minutes/day Frequency: 5-6 times per week Nancy/Mandaeism: Nondenominational Special nancy needs: No Seatbelt use: always Helmet use: No Drive intox or ride w/intox tier truck driver: No Do you feel safe at home: Yes Do you feel safe in your relationship?: Yes Exam Const General: cooperative and no acute distress HENMT Mouth: moist mucous membranes Eyes Conjunctivae: normal conjunctivae Sclera: normal sclerae Neck Neck: trachea midline and supple Resp Auscultation: clear to auscultation bilaterally, no rales, no rhonchi and no wheezes Cardio Jugular venous pressure: no JVD Rate: regular rate and not tachycardic Rhythm: regular rhythm GI Palpation: soft, not firm, no guarding, no masses, not rigid and nontender Back/Spine/Pelvis Thoracic/Lumbar Spine: No lumbar spinal tenderness and other (Bilateral lower lumbar bruising) Skin General skin exam: no rashes or lesions noted Wounds: wounds noted (Surgical wound w/o erythema, swelling or tenderness) Neuro General: alert, awake and tone normal Cognition: normal cognition Motor: strength 5/5 throughout (Bilateral lower extremities) Sensory Exam: no sensory deficits noted and other (No saddle anesthesia) Extrem General: no edema Psych Appearance: grossly normal Mental Status: mental status grossly normal Course Vital Signs Vital signs: Vital Signs Temperature 36.7 C 08/17/19 11:38 Pulse 83 08/17/19 11:38 Blood Pressure 176/78 H 08/17/19 11:38 Pulse Oximetry 98 08/17/19 11:38 Temperature 36.7 C 08/17/19 11:38 Temperature Source Temporal Artery Scan 08/17/19 11:38 Pulse 83 08/17/19 11:38 Respiratory Effort Non-Labored 08/17/19 11:40 Blood Pressure 176/78 H 08/17/19 11:38 Blood Pressure Position Sitting 08/17/19 11:38 Pulse Oximetry 98 08/17/19 11:38 Oxygen Delivery Method Room Air 08/17/19 11:38 Oxygen Flow Rate 0 08/17/19 11:38 Pain Level 6 08/17/19 12:06
[2019-08-17 13:39] VITALS: BP 100/67; PULSE 68; RESP 18; TEMP 37; O2SAT 97
[2019-08-17 13:40] VITALS: BP 100/67; PULSE 68; RESP 18; TEMP 37; O2SAT 97
[2019-08-17 14:10] LABS: Bilirubin Negative (Negative); Blood Moderate (Negative); Clarity Clear (Clear); Glucose Negative (Negative); Ketones Negative (Negative); Leukocyte Esterase Negative (Negative); Nitrite Negative (Negative); Specific Gravity 1.015 (1.005-1.025); Urobilinogen 0.2 EU/dL (Up TO 0.2); pH 6.5 (5-8)
[2019-08-17 14:32] LABS: Epithelial Cells Negative HPF (Negative); RBC >50 HPF (0-2); WBC 0-2 HPF (0-5)
[2019-08-17 14:33] LABS: Bacteria Negative HPF (Negative); Casts Negative LPF (Negative); Crystals Negative HPF (Negative); Mucus Negative (Negative); Other Cells Rare Renal (Negative)
[2019-08-17 14:34] LABS: C & S Indicated? No
--- NOTE | 2019-08-17 18:38 | NUR.NOTE ---
referral faxed to [facility], dr. salmeron.Nursing Note:
== END 2019-08-17 13:53 | disposition home or self-care (01) ==
PROVIDERS: Emergency Provider Student in an Organized Health Care Education/Training Program; PCP Family Medicine
DX: R33.8 Other retention of urine (principal); Y83.8 Other surgical procedures as the cause of abnormal reaction of the patient, or of later complication, without mention of misadventure at the time of the procedure; I10 Essential (primary) hypertension
CPT/HCPCS: 51702; 99283; 81003; 81015

== ENCOUNTER → 2019-08-19 15:10 | Outpatient (BNVA) | payer MEDICARE, SELFPAY | PROVIDERS: PCP Family Medicine; Referring Provider Family Medicine; Visit Provider Nurse Practitioner Gerontology | DX: R33.8 Other retention of urine (principal); I10 Essential (primary) hypertension | CPT/HCPCS: 99204; 99215 ==

== ENCOUNTER → 2019-08-26 07:56 | Outpatient (BNVA) | payer MEDICARE, SELFPAY | PROVIDERS: PCP Family Medicine; Referring Provider Family Medicine; Visit Provider Nurse Practitioner Gerontology | DX: R33.8 Other retention of urine (principal) | CPT/HCPCS: 99213 ==

== ENCOUNTER → 2019-09-05 08:25 | Outpatient (BNVA) | payer MEDICARE, SELFPAY | PROVIDERS: PCP Family Medicine; Referring Provider Family Medicine; Visit Provider Nurse Practitioner Gerontology | DX: R33.8 Other retention of urine (principal) | CPT/HCPCS: 99213 ==

== ENCOUNTER → 2019-12-02 08:56 | Outpatient (BNVA) | payer MEDICARE, SELFPAY | PROVIDERS: PCP Family Medicine; Referring Provider Family Medicine; Visit Provider Nurse Practitioner Gerontology | DX: R33.8 Other retention of urine (principal) | CPT/HCPCS: 99213 ==

== ENCOUNTER 2020-03-23 01:58 | Outpatient (CLI) | payer MEDICARE, SELFPAY ==
[2020-03-23 08:46] LABS: ALT 28 U/L (16-63); AST 17 U/L (15-37); Alkaline Phosphatase 93 U/L (46-116); Anion Gap 4.8 mmol/L (3-11); BUN 26 mg/dL (7-18); Bilirubin, Total 0.6 mg/dL (0.2-1.0); CO2 30.2 mmol/L (21.0-32.0); CREATININE 1.15 mg/dL (0.70-1.30); Calcium 8.5 mg/dL (8.5-10.1); Calculated LDL 94 mg/dL (<100); Chloride 103 mmol/L (98-107); Cholesterol 160 mg/dL (<200); Glucose 96 mg/dL (74-106); HDL Cholesterol 36 mg/dL (40-60); Potassium 4.6 mmol/L (3.5-5.1); Sodium 138 mmol/L (136-145); Total Protein 7.1 g/dL (6.4-8.2); Triglyceride 152 mg/dL (<150)
== END 2020-03-23 02:18 ==
PROVIDERS: PCP Family Medicine; Visit Provider Family Medicine
DX: I10 Essential (primary) hypertension (principal); E78.5 Hyperlipidemia, unspecified
CPT/HCPCS: 36415; 80053; 80061

== ENCOUNTER 2020-08-05 17:03 | Outpatient (REF) | payer MEDICARE, SELFPAY ==
[2020-08-05 13:52] LABS: Bilirubin Negative (Negative); Blood Trace-intact (Negative); Clarity Sl Cloudy (Clear); Glucose Negative (Negative); Ketones Negative (Negative); Leukocyte Esterase Small (Negative); Nitrite Negative (Negative); Specific Gravity 1.025 (1.005-1.025); Urobilinogen 0.2 EU/dL (Up TO 0.2)
[2020-08-05 14:07] LABS: ALT 28 U/L (16-63); AST 16 U/L (15-37); Albumin 4.2 g/dL (3.4-5.0); Alkaline Phosphatase 104 U/L (46-116); Anion Gap 11.1 mmol/L (3-11); BUN 27 mg/dL (7-18); Bilirubin, Total 0.4 mg/dL (0.2-1.0); CO2 25.9 mmol/L (21.0-32.0); CREATININE 0.9 mg/dL (0.70-1.30); Calcium 8.8 mg/dL (8.5-10.1); Chloride 102 mmol/L (98-107); Epithelial Cells Rare HPF (Negative); Glucose 90 mg/dL (74-106); Potassium 4.3 mmol/L (3.5-5.1); Sodium 139 mmol/L (136-145); Total Protein 7.9 g/dL (6.4-8.2)
[2020-08-05 14:08] LABS: Bacteria Moderate HPF (Negative); C & S Indicated? Yes
[2020-08-05 14:09] LABS: WBC >50 HPF (0-5)
== END 2020-08-05 17:04 | disposition home or self-care (01) ==
LOC: LBN 17:03
PROVIDERS: PCP Family Medicine; Visit Provider Physician Assistant
DX: R35.0 Frequency of micturition (principal); R82.998 Other abnormal findings in urine
CPT/HCPCS: 80053; 87077; 81003; 81015; 87086; 87186

== ENCOUNTER → 2020-08-11 10:09 | Outpatient (BNVA) | payer MEDICARE, SELFPAY | PROVIDERS: PCP Family Medicine; Referring Provider Family Medicine; Visit Provider Nurse Practitioner Gerontology | DX: N39.0 Urinary tract infection, site not specified (principal); R33.8 Other retention of urine | CPT/HCPCS: 81003; 99213 ==

== ENCOUNTER → 2020-08-27 09:23 | Outpatient (BNVA) | payer MEDICARE, SELFPAY | PROVIDERS: PCP Family Medicine; Referring Provider Family Medicine; Visit Provider Nurse Practitioner Gerontology | DX: R35.0 Frequency of micturition (principal); N40.1 Benign prostatic hyperplasia with lower urinary tract symptoms; N13.8 Other obstructive and reflux uropathy | CPT/HCPCS: 81003; 99213 ==

== ENCOUNTER → 2020-12-01 15:17 | Outpatient (BNVA) | payer MEDICARE, SELFPAY | PROVIDERS: PCP Nurse Practitioner Family; Referring Provider Family Medicine; Visit Provider Nurse Practitioner Gerontology | DX: N40.1 Benign prostatic hyperplasia with lower urinary tract symptoms (principal); N13.8 Other obstructive and reflux uropathy; Z79.899 Other long term (current) drug therapy | CPT/HCPCS: 99213 ==

== ENCOUNTER → 2021-06-03 08:17 | Outpatient (BNVA) | payer MEDICARE, SELFPAY | PROVIDERS: PCP Nurse Practitioner Family; Referring Provider Nurse Practitioner Family; Visit Provider Nurse Practitioner Gerontology | DX: N40.1 Benign prostatic hyperplasia with lower urinary tract symptoms (principal); N13.8 Other obstructive and reflux uropathy | CPT/HCPCS: 99213 ==

== ENCOUNTER → 2021-12-01 08:20 | Outpatient (BNVA) | payer MEDICARE, SELFPAY | PROVIDERS: PCP Nurse Practitioner Family; Referring Provider Nurse Practitioner Family; Visit Provider Nurse Practitioner Gerontology | DX: N40.1 Benign prostatic hyperplasia with lower urinary tract symptoms (principal) | CPT/HCPCS: 51798; 99213 ==

== ENCOUNTER → 2022-06-02 08:16 | Outpatient (BNVA) | payer MEDICARE, SELFPAY | PROVIDERS: PCP Nurse Practitioner Family; Referring Provider Nurse Practitioner Family; Visit Provider Nurse Practitioner Gerontology | DX: N40.1 Benign prostatic hyperplasia with lower urinary tract symptoms (principal); N13.8 Other obstructive and reflux uropathy | CPT/HCPCS: 99213 ==

== ENCOUNTER 2022-06-16 03:12 | Outpatient (CLI) | payer MEDICARE, SELFPAY ==
[2022-06-16 12:35] LABS: ALT 24 U/L (16-63); AST 17 U/L (15-37); Albumin 3.9 g/dL (3.4-5.0); Alkaline Phosphatase 83 U/L (46-116); Anion Gap 8.6 mmol/L (3-11); BUN 18 mg/dL (7-18); Bilirubin, Total 0.2 mg/dL (0.2-1.0); CO2 25.4 mmol/L (21.0-32.0); CREATININE 1.1 mg/dL (0.70-1.30); Calcium 8.6 mg/dL (8.5-10.1); Chloride 102 mmol/L (98-107); Estimated GFR 66.61 (mL/min/1.73m2); Glucose 106 mg/dL (74-106); Sodium 136 mmol/L (136-145); Total Protein 7.3 g/dL (6.4-8.2)
== END 2022-06-16 03:13 | disposition home or self-care (01) ==
LOC: LOS 03:12
PROVIDERS: PCP Nurse Practitioner Family; Visit Provider Nurse Practitioner Gerontology
DX: N13.8 Other obstructive and reflux uropathy (principal); N40.1 Benign prostatic hyperplasia with lower urinary tract symptoms
CPT/HCPCS: 36415; 80053

== ENCOUNTER → 2022-11-30 08:12 | Outpatient (BNVA) | payer MEDICARE, SELFPAY | PROVIDERS: PCP Nurse Practitioner Family; Visit Provider Nurse Practitioner Gerontology | DX: N40.1 Benign prostatic hyperplasia with lower urinary tract symptoms (principal); N13.8 Other obstructive and reflux uropathy | CPT/HCPCS: 51798; 99213 ==

== ENCOUNTER 2023-05-22 12:44 | Outpatient (REF) | payer MEDICARE, SELFPAY ==
[2023-05-22 15:06] LABS: Abs Immature Grans 0.02 10^3/uL (0.0-0.06); Absolute Basophil Count 0.07 10^3/uL (0.0-0.2); Absolute Eosinophil Count 0.19 10^3/uL (0.0-0.7); Absolute Lymphocyte Count 1.79 10^3/uL (1.2-3.4); Absolute Monocyte Count 0.71 10^3/uL (0.1-0.8); Basophils % 0.8; Eosinophils % 2.3; HCT 36.2 % (40.0-50.0); HGB 12.6 g/dL (13.5-17.5); Immature Grans % 0.2; Lymphocytes % 21.4; MCH 31.3 pg (27.0-33.0); MCHC 34.8 % (32.0-36.0); MCV 90 fL (80-95); Monocytes % 8.5; Neutrophils % 66.8; Platelet Count 271 10^3/uL (130-400); RBC 4.02 10^6/uL (4.36-5.78); RDW 12.2 % (11.8-14.1); RDW-SD 40.5 fL; WBC 8.38 10^3/uL (4.4-10.8)
[2023-05-22 15:29] LABS: ALT 15 U/L (16-63); AST 15 U/L (15-37); Albumin 3.9 g/dL (3.4-5.0); Alkaline Phosphatase 86 U/L (46-116); Anion Gap 10.2 mmol/L (3-11); BUN 24 mg/dL (7-18); Bilirubin, Total 0.5 mg/dL (0.2-1.0); CO2 22.8 mmol/L (21.0-32.0); CREATININE 0.9 mg/dL (0.70-1.30); Calcium 8.5 mg/dL (8.5-10.1); Chloride 103 mmol/L (98-107); Estimated GFR 84.22 (mL/min/1.73m2); Glucose 110 mg/dL (74-106); Potassium 3.4 mmol/L (3.5-5.1); Sodium 136 mmol/L (136-145); Total Protein 7.1 g/dL (6.4-8.2)
[2023-05-23 13:02] LABS: IgA 232 mg/dL (85-499); Interpretation (See Note); Tissue Transglutaminase IgA <1.2 U/mL (<4.0)
== END 2023-05-22 12:45 | disposition home or self-care (01) ==
LOC: NCHCN 12:44
PROVIDERS: PCP Nurse Practitioner Family; Visit Provider Nurse Practitioner Family
DX: R19.7 Diarrhea, unspecified (principal)
CPT/HCPCS: 80053; 82784; 83516; 85025

== ENCOUNTER → 2023-05-31 08:41 | Outpatient (BNVA) | payer MEDICARE, SELFPAY | PROVIDERS: PCP Nurse Practitioner Family; Referring Provider Nurse Practitioner Family; Visit Provider Nurse Practitioner Gerontology | DX: N40.1 Benign prostatic hyperplasia with lower urinary tract symptoms (principal); N13.8 Other obstructive and reflux uropathy | CPT/HCPCS: 51798; 99213 ==

== ENCOUNTER 2023-08-18 14:41 | Emergency (ER) | payer MEDICARE, SELFPAY ==
[2023-08-18 14:51] VITALS: BP 158/72; PULSE 63; RESP 16; TEMP 37; O2SAT 96
--- NOTE | 2023-08-18 15:00 | DI.RAD_ITS ---
Exam(s) XR SHOULDER RT COMPLETE 2+V EXAM: XR SHOULDER RT COMPLETE 2+V CLINICAL HISTORY: pain s/p fall. TECHNIQUE: 2D digital imaging was performed. Five views. COMPARISON: No exams were available for comparison FINDINGS: BONES: No acute fracture is present. No bony destructive lesion is seen. JOINTS: The humeral head is dislocated anteriorly with respect to the glenoid. Degenerative changes of the glenohumeral joint and AC joint are noted. SOFT TISSUE: Normal. IMPRESSION: Anterior shoulder dislocation. DATA REPOSITORY: RADIATION DOSE DELIVERED:
--- NOTE | 2023-08-18 15:15 | W.ED.GENAD ---
HPI General Mode of arrival: ambulatory. Date/Time Provider Initiated Documentation: 08/18/23 15:06. Limitations to Documentation: no limitations. Information obtained by: patient. History of Present Illness 83 year old M presents to the emergency department with the chief complaint of Right shoulder pain, described as moderate, Quality is described as aching, and is localized to the right and upper extremity. Patient reports no radiation. Patient started experiencing this hour(s) (2) and it has been constant. Rest improves symptom(s), Movement worsens symptoms . Patient notes no other symptoms.; denies chest pain and fever/chills. Patient did receive the following treatments prior to arrival, none Related Data Home Medications Medication Instructions Recorded Confirmed cyanocobalamin (vitamin B-12) 1,000 mcg PO DAILY 04/06/20 05/31/23 1,000 mcg capsule triamcinolone acetonide 0.1 % 1 applic topical TID PRN PRN rash 05/03/21 05/31/23 topical cream #15 grams tamsulosin 0.4 mg capsule (Flomax) 0.8 mg (2 x 0.4 mg) PO DAILY #180 11/11/22 05/31/23 caps atorvastatin 20 mg tablet 20 mg PO DAILY #90 tab-caps 03/24/23 05/31/23 lisinopril 20 1 tab PO DAILY #90 tabs 03/24/23 05/31/23 mg-hydrochlorothiazide 12.5 mg tablet Previous Rx's Medication Instructions Recorded triamcinolone acetonide 0.1 % 1 applic topical TID PRN PRN rash 05/03/21 topical cream #15 grams tamsulosin 0.4 mg capsule (Flomax) 0.8 mg (2 x 0.4 mg) PO DAILY #180 11/11/22 caps atorvastatin 20 mg tablet 20 mg PO DAILY #90 tab-caps 03/24/23 lisinopril 20 1 tab PO DAILY #90 tabs 03/24/23 mg-hydrochlorothiazide 12.5 mg tablet Allergies Allergy/AdvReac Type Severity Reaction Status Date / Time No Known Allergies Allergy Verified 11/30/22 08:26 General Stated Complaint: Orthopedic KJ: 3 Review of Systems All systems reviewed & are unremarkable except as noted in HPI and below Constitutional Constitutional: Denies chills, Denies fever(s) and Denies weakness Eyes Eyes: Denies loss of vision Cardiovascular Cardiovascular: Denies chest pain and Denies dyspnea Respiratory Respiratory: Denies cough and Denies dyspnea Gastrointestinal Gastrointestinal: Denies abdominal pain, Denies nausea and Denies vomiting Musculoskeletal Musculoskeletal: Denies joint swelling Neurologic Neurologic: Denies loss of vision and Denies weakness Exam Const General: no acute distress Orientation: alert [facility] Head: normal to inspection Ears: external ears normal General nose exam: external nose normal Mouth: moist mucous membranes Eyes General: appearance normal, both eyes and all related structures Neck Neck: normal visual inspection Resp Effort & Inspection: normal respiratory effort and able to speak in complete sentences Cardio Rate: regular rate Skin General skin exam: no rashes or lesions noted Neuro General: patient alert and patient oriented x3 Extrem General: capillary refill normal Psych Mental Status: mental status grossly normal Course Vital Signs Vital signs: Vital Signs Temperature 37.0 C 08/18/23 14:51 Pulse 63 08/18/23 14:51 Respiratory Rate 16 08/18/23 14:51 Blood Pressure 158/72 H 08/18/23 14:51 Pulse Oximetry 96 08/18/23 14:51 Temperature 37.0 C 08/18/23 14:51 Temperature Source Oral 08/18/23 14:51 Pulse 63 08/18/23 14:51 Respiratory Rate 16 08/18/23 14:51 Respiratory Effort Normal 08/18/23 15:02 Blood Pressure 158/72 H 08/18/23 14:51 Blood Pressure Position Supine 08/18/23 14:51 Pulse Oximetry 96 08/18/23 14:51 Oxygen Delivery Method Room Air 08/18/23 14:51 Oxygen Flow Rate 0 08/18/23 14:51 Pain Level 10 08/18/23 14:51 Procedures Orthopedic Joint Reduction Joint #1: Time Out Performed: Yes Side: right Joint Reduction Location: shoulder Analgesia: other (intraarticular lidocaine) Local Anesthesia: Lidocaine 1% Amount of anesthesic used (mL): 20 Shoulder Technique Used (if applicable): other (FARES technique) Post-reduction neuro exam: intact Post-reduction vascular: intact Post Reduction X-Ray Obtained: Yes Post Reduction X-Ray Results: reduced (on my read) Splint Applied: Yes (sling) Patient Tolerated Procedure: well Medical Decision Making 83-year-old male with a history of hypertension, denies being on any anticoagulation, comes in with right shoulder pain. He states he was snowblowing a trail when he slipped and landed on his right shoulder. He denies hitting his head denies loss of consciousness. Denies having preceding symptoms to the fall such as chest pain or shortness of breath or lightheadedness. He localizes the pain to the right shoulder. He is conscious and alert and oriented x 4 on arrival, has no signs of trauma to the head and denies any head pain, neck pain, and back pain, chest pain, abdominal pain. He has tenderness to the right lateral shoulder with limited range of motion due to pain. No pain to the mid to distal humerus, elbow, forearm, wrist, hand. Intact distal sensation and pulses. No midline C-spine tenderness with full range of motion. Will obtain x-rays of the shoulder to evaluate for fracture or dislocation. X-ray on my read shows anterior shoulder dislocation, will place intra-articular lidocaine and attempt reduction pt tolerated well, using FARES technique felt a pop that felt like a reduction and shoulders appeared more symmetric. He tolerated well. If radiologist agrees that xray appears to have successful reduction plan for d/c and follow up with ortho Differential Diagnosis Differential Diagnosis: Shoulder dislocation, humerus fracture Imaging Data Radiologic Study: Attestation: I personally reviewed and interpreted this imaging study as follows: Imaging: X-Ray My impression: Anterior shoulder dislocation Radiologic Study #2: Attestation: I personally reviewed and interpreted this imaging study as follows: Imaging: X-Ray My impression: reduction of dislocation Quality:SDOH Health Related Social Needs: No Data to Display PFSH All Active Problems (Updated 08/18/23 @ 16:38 by Fernandez Stout MD) Anterior dislocation of right shoulder (Acute) Ventral hernia (Acute) BPH w urinary obs/LUTS (Acute) Polyneuropathy (Acute) Alcohol intake above recommended sensible limits (Acute) Hearing loss (Acute 08/06/12) Foraminal stenosis of lumbar region (Chronic) Essential hypertension (Acute 08/09/13) Heart murmur (Acute 10/17/13) Hemorrhoids (Acute) Hyperlipidemia (Acute 02/05/13) Type IV lipids Increased body mass index (Acute 09/13/13) Onychomycosis (Acute 10/17/13) Osteoarthritis (Acute 04/26/12) knee synvisc treatment Varicose veins of lower extremity (Acute) Medical History (Updated 08/18/23 @ 16:38 by Fernandez Stout MD) Hypertension Surgical History (Updated 05/04/22 @ 11:27 by Raghav Flores NP) History of total right knee replacement Status post carpal tunnel release Patient is doing very well following open carpal tunnel release with no residual symptoms. He wants to schedule total knee arthroplasty after his hernia is repaired which is at the end of this month. We will tentatively schedule knee replacement surgery in August 2018 I reviewed with the patient in detail how the procedure was done showing him pictures of the incision and the appearance of the components within the knee and show him with the components I utilize. Open Carpal Tunnel release 06/02/15; LEFT, August/2017; RIGHT Repair of inguinal hernia RIGHT Colonoscopy - MAC Family History Mother , age 69 Cancer Father , age 106 No problems noted. Maternal Grandfather , ACCIDENTAL age 90+ No problems noted. Paternal Grandfather , ACCIDENTAL age 90+ No problems noted. Maternal Grandmother , age 90+ No problems noted. Son No problems noted. Daughter No problems noted. Social History (Updated 05/10/22 @ 10:26 by Yenny Arenas) Smoking/Tobacco Use Status: Never Second Hand Exposure: Yes Smoking risk assessment performed?: Yes Alcohol Intake: current Alcohol Intake frequency: a few times a week Alcohol type: beer, wine and hard liquor Drug use: Never Substance use type: does not use Caregiver/Support person: No Household members: spouse Housing: house Communication Needs: None Do you need help understanding health information?: Never Pets and animals: No Sexually active: Yes Do you think of yourself as: straight/heterosexual Current gender identity: male What is your relationship status?: How often do you talk on the phone with friends or family?: three or more times per week How often do you get together with friends or relatives?: twice per week How often do you attend mu-ism or voodoo services?: 4 or more times per year Do you belong to any clubs or organized social groups?: yes Panel score (0-1 are the most socially isolated patients): 4 What type of physical activity do you participate in: other Details: Dancing, physical work, gardening Duration: > 90 minutes/day Frequency: decline to answer Nancy/Zoroastrian: Taoism Special nancy needs: No Seatbelt use: always Helmet use: No Drive intox or ride w/intox distribution driver: No Do you feel safe at home: Yes Do you feel safe in your relationship?: Yes PAWSS Have you Been Recently Intoxicated or Drunk Within the Last 30 days?: No Have you Ever Experienced Previous Episodes of Alcohol Withdrawal?: No Have you ever Experienced Withdrawal Seizures?: No Have you ever Experienced Delirium Tremens(DT)s?: No Have you ever undergone Alcohol Rehabilitation Treatment (i.e, inpt ot outpatient treatment programs)?: No Have you ever Experienced Blackouts?: No Have you ever Combined Alcohol with other Downers within the last 90 days?: No Have you ever Combined Alcohol with any other Substance of Abuse during the last 90 days?: No Positive Blood Alcohol level on Presentation? [PCS.BAL]: No Evidence of Increased Autonomic Activity (i.e. HR>120, tremor, sweating, agitation, nausea)?: No Result: 0 Discharge Plan Disposition Patient Disposition: Home Condition: Stable Discharge Details Clinical Impression: Anterior dislocation of right shoulder Primary Care Provider: Raghav Flores ED Provider: Fernandez Stout Home Meds and New Rx's Prescriptions: Continued cyanocobalamin (vitamin B-12) 1,000 mcg capsule 1,000 mcg PO DAILY triamcinolone acetonide 0.1 % cream 1 applic TP TID PRN PRN (Reason: rash) Qty: 15 2RF Rx Instructions: Apply to lower legs tid prn. tamsulosin [Flomax] 0.4 mg capsule 0.8 mg PO DAILY Qty: 180 4RF Rx Instructions: Do not fill till patient requests lisinopril-hydrochlorothiazide 20-12.5 mg tablet 1 tab PO DAILY Qty: 90 3RF atorvastatin 20 mg tablet 20 mg PO DAILY Qty: 90 3RF Discharge Instructions Instructions: Shoulder Dislocation (ED) Additional Instructions: Your x-ray showed he had a shoulder dislocation which was reduced back into place Call orthopedics on Monday to arrange for follow-up appointment If you feel more ill, have severe worsening pain or new pain such as really bad headaches return to the emergency department Referrals: Warren Ndiaye MD [ [facility] STAFF PHYSICIAN] -
[2023-08-18 15:27] VITALS: TEMP 37
[2023-08-18] MEDS: HYDROmorphone 2 MG/ML SYR 1 MG IM (15:27)
--- NOTE | 2023-08-18 16:15 | DI.RAD_ITS ---
Exam(s) XR SHOULDER RT COMP POST REDUC EXAM: XR SHOULDER RT COMP POST REDUC CLINICAL HISTORY: attempted reduction. TECHNIQUE: 2D digital imaging was performed. Three views. Portable. COMPARISON: CR XR SHOULDER RT COMPLETE 2+V from 08/18/2023 FINDINGS: The positioning is suboptimal. the previously noted anterior shoulder dislocation has been reduced. Alignment appears of grossly s atisfactory. No fracture is identified. Degenerative changes again noted at AC joint and glenohumeral joint. IMPRESSION: Reduction of shoulder dislocation. DATA REPOSITORY: RADIATION DOSE DELIVERED:
[2023-08-18 17:03] VITALS: PULSE 72; RESP 18; TEMP 36.9; O2SAT 98
== END 2023-08-18 17:08 | disposition home or self-care (01) ==
PROVIDERS: Emergency Provider Emergency Medicine; PCP Nurse Practitioner Family
DX: S43.084A Other dislocation of right shoulder joint, initial encounter (principal); I10 Essential (primary) hypertension; W00.0XXA Fall on same level due to ice and snow, initial encounter; Y93.01 Activity, walking, marching and hiking
CPT/HCPCS: 23650; 73030; 96372; 99283; J1170

== ENCOUNTER 2023-08-29 15:41 | Outpatient (CLI) | payer MEDICARE, SELFPAY ==
--- NOTE | 2023-08-29 14:53 | DI.RAD_ITS ---
Exam(s) XR SHOULDER RT COMPLETE 2+V EXAM: XR SHOULDER RT COMPLETE 2+V CLINICAL HISTORY: F/U SHOULDER DISLOCATION. TECHNIQUE: 2D digital imaging was performed. Two views. COMPARISON: CR XR SHOULDER RT COMP POST REDUC from 08/18/2023 FINDINGS: BONES: No acute fracture is present. No bony destructive lesion is seen. Spurring at the tip of the acromion. JOINTS: No dislocation present. Glenohumeral joint space is maintained. There is mild spurring at t he glenoid. There is spurring at the inferior humeral head and greater tuberosity. Mild spurring at the AC joint. SOFT TISSUE: Normal. IMPRESSION: [id number] degenerative changes. DATA REPOSITORY: RADIATION DOSE DELIVERED:
== END 2023-08-29 15:42 | disposition home or self-care (01) ==
LOC: DIORS 15:41
PROVIDERS: PCP Nurse Practitioner Family; Visit Provider Student in an Organized Health Care Education/Training Program
DX: S43.014A Anterior dislocation of right humerus, initial encounter (principal); W01.0XXA Fall on same level from slipping, tripping and stumbling without subsequent striking against object, initial encounter; M75.101 Unspecified rotator cuff tear or rupture of right shoulder, not specified as traumatic; M12.811 Other specific arthropathies, not elsewhere classified, right shoulder
CPT/HCPCS: 99213; 73030

== ENCOUNTER 2024-02-28 09:49 | Outpatient (REF) | payer MEDICARE, SELFPAY ==
[2024-02-29 15:51] LABS: Campylobacter PCR Negative (Negative); Salmonella PCR Negative (Negative); Shiga Toxin PCR Negative (Negative); Shigella/Enteroinvasive Ecoli Negative (Negative)
== END 2024-02-28 09:50 | disposition home or self-care (01) ==
LOC: LBN 09:49
PROVIDERS: PCP Nurse Practitioner Family; Visit Provider Nurse Practitioner Family
DX: R19.7 Diarrhea, unspecified (principal)
CPT/HCPCS: 87505

== ENCOUNTER 2024-03-19 13:08 | Emergency (ER) | payer MEDICARE, SELFPAY ==
[2024-03-19 13:10] VITALS: BP 174/81; PULSE 92; RESP 20; TEMP 38.7; O2SAT 92
[2024-03-19 13:37] LABS: Abs Immature Grans 0.05 10^3/uL (0.0-0.06); Absolute Basophil Count 0.05 10^3/uL (0.0-0.2); Absolute Eosinophil Count 0.06 10^3/uL (0.0-0.7); Absolute Lymphocyte Count 0.62 10^3/uL (1.2-3.4); Absolute Neutrophil Count 6.99 10^3/uL (1.2-6.7); Basophils % 0.6 %; Eosinophils % 0.7 %; HCT 40.3 % (40.0-50.0); HGB 13.7 g/dL (13.5-17.5); Immature Grans % 0.6 %; Lactate 1.4 mmol/L (0.6-1.4); Lymphocytes % 7.2 %; MCH 30.3 pg (27.0-33.0); MCV 89 fL (80-95); MPV 8.8 fL (8.0-11.0); Monocytes % 9.3 %; Neutrophils % 81.6 %; Platelet Count 256 10^3/uL (130-400); RBC 4.52 10^6/uL (4.36-5.78); RDW 11.9 % (11.8-14.1); RDW-SD 39.1 fL; WBC 8.57 10^3/uL (4.4-10.8)
[2024-03-19 13:54] LABS: ALT 18 U/L (16-63); AST 18 U/L (15-37); Albumin 3.6 g/dL (3.4-5.0); Alkaline Phosphatase 93 U/L (46-116); Anion Gap 9.3 mmol/L (3-11); BUN 20 mg/dL (7-18); Bilirubin, Total 0.46 mg/dL (0.2-1.0); CO2 26.7 mmol/L (21.0-32.0); CREATININE 1.2 mg/dL (0.70-1.30); Chloride 94 mmol/L (98-107); Estimated GFR 59.26 (mL/min/1.73m2); Glucose 130 mg/dL (74-106); Magnesium 1.9 mg/dL (1.8-2.4); Potassium 4.1 mmol/L (3.5-5.1); Sodium 130 mmol/L (136-145); Total Protein 7.8 g/dL (6.4-8.2)
[2024-03-19] MEDS: Acetaminophen 500 MG TAB 1000 MG PO (13:54)
--- NOTE | 2024-03-19 14:15 | DI.RAD_ITS ---
Exam(s) XR CHEST 2V PA LATERAL EXAM: XR CHEST 2V PA LATERAL CLINICAL HISTORY: Fever, body aches TECHNIQUE: 2D digital imaging was performed. Two views. COMPARISON: No exams were available for comparison FINDINGS: HEART: Normal size. Aorta: Not dilated. PULMONARY VASCULATURE: Normal. MEDIASTINUM: Moderate size hiatal hernia. LUNGS: Question of increased densities in the left upper lobe PLEURAL SPACE: No pleural effusion or pneumothorax. BONE:Unremarkable for age. SOFT TISSUES: Unremarkable. IMPRESSION: Question of left upper lobe pneumonia. DATA REPOSITORY: RADIATION DOSE DELIVERED:
[2024-03-19 14:19] LABS: COVID-19 PCR Negative (Negative); Influenza A PCR Negative (Negative); Influenza B PCR Negative (Negative); RSV PCR Negative (Negative)
[2024-03-19 14:20] LABS: Source Nasopharynx
[2024-03-19] MEDS: Lactated Ringers 1,000 ML 1000 ML IV (14:28)
--- NOTE | 2024-03-19 14:37 | ED.GENADUL_ITS ---
Discharge Plan Disposition Patient Disposition: Home Condition: Stable Discharge Details Clinical Impression: Pneumonia, Hyperlipidemia, Essential hypertension Primary Care Provider: Raghav Flores ED Provider: Shauna Montoya Home Meds and New Rx's Prescriptions: New amoxicillin 500 mg capsule 1,000 mg PO Q8H 7 Days Qty: 42 0RF No Action cyanocobalamin (vitamin B-12) 1,000 mcg capsule 1,000 mcg PO DAILY triamcinolone acetonide 0.1 % cream 1 applic TP TID PRN PRN (Reason: rash) Qty: 15 2RF Rx Instructions: Apply to lower legs tid prn. lisinopril-hydrochlorothiazide 20-12.5 mg tablet 1 tab PO DAILY Qty: 90 3RF atorvastatin 20 mg tablet 20 mg PO DAILY Qty: 90 3RF tamsulosin 0.4 mg capsule See Rx Instructions .ROUTE .COMPLEX Qty: 180 4RF Dose Instruction: TAKE 2 TABLETS BY MOUTH DAILY. DO NOT FILL TIL PATIENT REQUESTS Rx Instructions: TAKE 2 TABLETS BY MOUTH DAILY. DO NOT FILL TIL PATIENT REQUESTS Discharge Instructions Instructions: Community-Acquired Pneumonia, Adult (DC) Additional Instructions: You were seen in the emergency department today for evaluation of shortness of breath, body aches, fever and were found to have a pneumonia. The remainder of your laboratory studies were reassuring, you will be contacted if there is any positive findings in your blood cultures. I have started you on antibiotics which you need to take 3 times per day for the next week, even if you start to feel better. Please follow-up with your primary care provider in the next 2 days to discuss this visit and any symptoms that change, worsen, or persist. Thank you for allowing us to be part of your care. HPI General Mode of arrival: ambulatory . Date/Time Provider Initiated Documentation: 03/19/24 13:18 . Limitations to Documentation: no limitations . Information obtained by: patient, family and old records reviewed . HPI Narrative: HPI: This is an 84-year-old male patient with a past medical history significant for hypertension, hyperlipidemia, who is presenting for evaluation of bodyaches, fever, and productive cough since Monday. The patient reports that he for started to feel unwell, noted a temperature at home that occasionally responded to Tylenol or ibuprofen, last dose several hours prior to arrival. The patient reports that he has had a generalized headache without vision changes, has not noted any focal weakness or sensory changes. States that he has a runny and stuffy nose, has been able to eat and drink normally, and has not noted changes to his bowel or bladder habits. He reports that he has been coughing up sputum, has not noted any hemoptysis. His was sick with a similar respiratory illness about 1-1/2 weeks ago, neither the patient nor his family members are vaccinated against COVID or flu this year., Exam: Gen: Awake and alert, in no apparent distress HEENT: Non-icteric sclera. Conjunctiva not injected, posterior pharynx without erythema, exudate, or asymmetry. Neck: Supple, no meningismus Lungs: No apparent respiratory distress, normal respiratory effort. Lung sounds clear and equal bilaterally without wheezes, rhonchi, rales. Speaking in full sentences without respiratory distress CV: Appears well perfused, strong, symmetrical distal pulses Abdomen: Non-distended, soft MSK: Moves 4 extremities without apparent limitation in ROM. No unilateral calf swelling or tenderness Skin: Visualized skin without rashes, cyanosis. Neuro: Normal Gait, no obvious focal deficits or facial asymmetry. Speaks in full, clear sentences. Psych: Appropriate for situation. MDM: This is an 84-year-old male patient presenting for evaluation of fever and bodyaches, cough, and headache. Differential includes but is not limited to viral upper respiratory infection, pneumonia, certainly considered bacteremia and sepsis given the patient's fever and chills. The patient has no alteration in mental status or meningismus to suggest meningitis or encephalitis. No abdominal tenderness to suggest intra-abdominal source of infection. I considered metabolic and electrolyte derangement, kidney injury, liver disease. No chest pain to suggest ACS. We will obtain laboratory studies to include CBC, CMP, lactate, blood cultures, and a viral swab. I will obtain an x-ray, and provide the patient with a dose of Tylenol and intravenous fluids for symptom management. ED Course: I independently interpreted the laboratory studies, which show no significant leukocytosis, anemia, or thrombocytopenia. The chemistry panel is without evidence of severe electrolyte abnormality, kidney dysfunction, or liver injury. Viral swab was negative, lactate low at 1.4. Patient endorses symptom improvement after Tylenol administration. Independently interpreted the patient's x-ray imaging which does show a consolidation in the left upper lobe concerning for pneumonia. I provided the patient with his dose of amoxicillin and recommended a 7-day course, as well as supplemental Tylenol and ibuprofen for symptomatic management of pain and fever. At this time, the patient has had a full medical evaluation and is safe for discharge to home. They are hemodynamically stable, ambulatory, and tolerating PO. They are understanding of the follow-up plan and return precautions. They left our facility without incident. Shauna Montoya MD Related Data Home Medications ?Medication ?Instructions ?Recorded ?Confirmed cyanocobalamin (vitamin B-12) 1,000 mcg PO DAILY 04/06/20 03/19/24 1,000 mcg capsule triamcinolone acetonide 0.1 % 1 applic topical TID PRN PRN rash 05/03/21 03/19/24 topical cream #15 grams atorvastatin 20 mg tablet 20 mg PO DAILY #90 tab-caps 03/24/23 03/19/24 lisinopril 20 1 tab PO DAILY #90 tabs 03/24/23 03/19/24 mg-hydrochlorothiazide 12.5 mg tablet tamsulosin 0.4 mg capsule See Rx Instructions .Route 11/28/23 03/19/24 .COMPLEX #180 caps amoxicillin 500 mg capsule 1,000 mg (2 x 500 mg) PO Q8H 7 03/19/24 days #42 caps Previous Rx's ?Medication ?Instructions ?Recorded triamcinolone acetonide 0.1 % 1 applic topical TID PRN PRN rash 05/03/21 topical cream #15 grams atorvastatin 20 mg tablet 20 mg PO DAILY #90 tab-caps 03/24/23 lisinopril 20 1 tab PO DAILY #90 tabs 03/24/23 mg-hydrochlorothiazide 12.5 mg tablet tamsulosin 0.4 mg capsule See Rx Instructions .Route 11/28/23 .COMPLEX #180 caps amoxicillin 500 mg capsule 1,000 mg (2 x 500 mg) PO Q8H 7 03/19/24 days #42 caps Allergies Allergy/AdvReac Type Severity Reaction Status Date / Time No Known Allergies Allergy Verified 03/19/24 13:14 General Stated Complaint: Fever KJ: 3 Course Vital Signs Vital signs: Vital Signs Temperature 38.7 C H 03/19/24 13:10 Pulse 92 H 03/19/24 13:10 Respiratory Rate 03/19/24 13:10 Blood Pressure 174/81 H 03/19/24 13:10 Pulse Oximetry 92 03/19/24 13:10 Temperature 38.7 C H 03/19/24 13:10 Temperature Source Oral 03/19/24 13:10 Pulse 92 H 03/19/24 13:10 Respiratory Rate 20 03/19/24 13:10 Blood Pressure 174/81 H 03/19/24 13:10 Blood Pressure Position Supine 03/19/24 13:10 Pulse Oximetry 92 03/19/24 13:10 Oxygen Delivery Method Room Air 03/19/24 13:10 Oxygen Flow Rate 0 03/19/24 13:10 Pain Level 0 03/19/24 13:10 Lab/Test Results Lab/Test Results: 03/19/24 13:37 Blood Blood Culture - Pending 03/19/24 13:28 Blood Blood Culture - Pending Laboratory Tests Range/Units 03/19/24 03/19/24 13:21 13:28 WBC (4.4-10.8) 10^3/uL 8.57 RBC (4.36-5.78) 10^6/uL 4.52 Hgb (13.5-17.5) g/dL 13.7 Hct (40.0-50.0) % 40.3 MCV (80-95) fL 89 MCH (27.0-33.0) pg 30.3 MCHC (32.0-36.0) % 34.0 RDW (11.8-14.1) % 11.9 Plt Count (130-400) 10^3/uL 256 MPV (8.0-11.0) fL 8.8 Immature Gran % % 0.6 Neutrophils % % 81.6 Lymphocytes % % 7.2 Monocytes % % 9.3 Eosinophils % % 0.7 Basophils % % 0.6 Nucleated RBC % (0.0-0.3) % 0.0 Absolute Neutrophils (1.2-6.7) 10^3/uL 6.99 H Absolute Lymphocytes (1.2-3.4) 10^3/uL 0.62 L Absolute Monocytes (0.1-0.8) 10^3/uL 0.80 Absolute Eosinophils (0.0-0.7) 10^3/uL 0.06 Absolute Basophils (0.0-0.2) 10^3/uL 0.05 VBG Lactate (0.6-1.4) mmol/L 1.4 Sodium (136-145) mmol/L 130 L Potassium (3.5-5.1) mmol/L 4.1 Chloride (98-107) mmol/L 94 L Carbon Dioxide (21.0-32.0) mmol/L 26.7 Anion Gap (3-11) mmol/L 9.3 BUN (7-18) mg/dL 20 H Creatinine (0.70-1.30) mg/dL 1.2 Est GFR (CKD-EPI 2020) (mL/min/1.73m2) 59.26 Glucose (74-106) mg/dL 130 H Calcium (8.5-10.1) mg/dL 9.0 Magnesium (1.8-2.4) mg/dL 1.9 Total Bilirubin (0.2-1.0) mg/dL 0.46 AST (15-37) U/L 18 ALT (16-63) U/L 18 Alkaline Phosphatase (46-116) U/L 93 Total Protein (6.4-8.2) g/dL 7.8 Albumin (3.4-5.0) g/dL 3.6 COVID-19 Source Nasopharynx SARS-CoV-2 (PCR) (Negative) Negative Influenza Type A (PCR) (Negative) Negative Influenza Type B (PCR) (Negative) Negative RSV (PCR) (Negative) Negative Medical Decision Making Quality:SDOH Health Related Social Needs: No Data to Display PFSH All Active Problems (Updated 03/19/24 @ 15:05 by Shauna Montoya MD) Pneumonia (Acute) Diarrhea (Acute) Right rotator cuff tear arthropathy (Acute) Ventral hernia (Acute) BPH w urinary obs/LUTS (Acute) Polyneuropathy (Acute) Alcohol intake above recommended sensible limits (Acute) Hearing loss (Acute 08/06/12) Foraminal stenosis of lumbar region (Chronic) Essential hypertension (Acute 08/09/13) Heart murmur (Acute 10/17/13) Hemorrhoids (Acute) Hyperlipidemia (Acute 02/05/13) Type IV lipids Increased body mass index (Acute 09/13/13) Onychomycosis (Acute 10/17/13) Osteoarthritis (Acute 04/26/12) knee synvisc treatment Varicose veins of lower extremity (Acute) Medical History (Updated 03/19/24 @ 15:05 by Shauna Montoya MD) Hypertension Surgical History (Updated 05/04/22 @ 11:27 by Raghav Flores NP) History of total right knee replacement Status post carpal tunnel release Patient is doing very well following open carpal tunnel release with no residual symptoms. He wants to schedule total knee arthroplasty after his hernia is repaired which is at the end of this month. We will tentatively schedule knee replacement surgery in August 2018 I reviewed with the patient in detail how the procedure was done showing him pictures of the incision and the appearance of the components within the knee and show him with the components I utilize. Open Carpal Tunnel release 06/02/15; LEFT, August/2017; RIGHT Repair of inguinal hernia RIGHT Colonoscopy - MAC Family History Mother , age 69 Cancer Father , age 106 No problems noted. Maternal Grandfather , ACCIDENTAL age 90+ No problems noted. Paternal Grandfather , ACCIDENTAL age 90+ No problems noted. Maternal Grandmother , age 90+ No problems noted. Son No problems noted. Daughter No problems noted. Social History (Updated 05/10/22 @ 10:26 by Yenny Arenas) Smoking/Tobacco Use Status: Never Second Hand Exposure: Yes Smoking risk assessment performed?: Yes Alcohol Intake: current Alcohol Intake frequency: a few times a week Alcohol type: beer, wine and hard liquor Drug use: Never Substance use type: does not use Caregiver/Support person: No Household members: spouse Housing: house Communication Needs: None Do you need help understanding health information?: Never Pets and animals: No Sexually active: Yes Do you think of yourself as: straight/heterosexual Current gender identity: male What is your relationship status?: How often do you talk on the phone with friends or family?: three or more times per week How often do you get together with friends or relatives?: twice per week How often do you attend nondenominational or gnosticist services?: 4 or more times per year Do you belong to any clubs or organized social groups?: yes Panel score (0-1 are the most socially isolated patients): 4 What type of physical activity do you participate in: other Details: Dancing, physical work, gardening Duration: > 90 minutes/day Frequency: decline to answer Nancy/Temple: [employer] Special nancy needs: No Seatbelt use: always Helmet use: No 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
[2024-03-19 14:55] VITALS: BP 108/62; PULSE 82; RESP 16; O2SAT 94
[2024-03-19 15:23] VITALS: TEMP 37.5
[2024-03-19] MEDS: Amoxicillin 500 MG CAP 1000 MG PO (15:24)
== END 2024-03-19 15:22 | disposition home or self-care (01) ==
PROVIDERS: Emergency Provider Emergency Medicine; PCP Nurse Practitioner Family
DX: J18.9 Pneumonia, unspecified organism (principal); E78.5 Hyperlipidemia, unspecified; I10 Essential (primary) hypertension
CPT/HCPCS: 80053; 87040; 87637; 99284; 71046; 83605; 83735; 85025

== ENCOUNTER → 2024-04-02 09:47 | Outpatient (BNVA) | payer MEDICARE, SELFPAY | PROVIDERS: PCP Nurse Practitioner Family; Visit Provider Nurse Practitioner Gerontology | DX: N40.1 Benign prostatic hyperplasia with lower urinary tract symptoms (principal); N13.8 Other obstructive and reflux uropathy | CPT/HCPCS: 51798; 99213 ==

== ENCOUNTER → 2024-04-04 11:09 | Outpatient (BNVA) | payer MEDICARE, SELFPAY | PROVIDERS: PCP Nurse Practitioner Family; Referring Provider Nurse Practitioner Family; Visit Provider Surgery | DX: R19.7 Diarrhea, unspecified (principal) | CPT/HCPCS: 99214 ==

== ENCOUNTER 2024-04-08 14:53 | Outpatient (REF) | payer MEDICARE, SELFPAY ==
[2024-04-08 19:46] LABS: C Diff PCR Negative (Negative)
[2024-04-12 19:39] LABS: Calprotectin <50.0 mcg/g
[2024-04-12 20:56] LABS: Pancreatic Elastase, F 357 mcg/g
== END 2024-04-08 14:54 | disposition home or self-care (01) ==
LOC: LBN 14:53
PROVIDERS: PCP Nurse Practitioner Family; Visit Provider Surgery
DX: Z72.89 Other problems related to lifestyle (principal); H91.90 Unspecified hearing loss, unspecified ear; K52.9 Noninfective gastroenteritis and colitis, unspecified
CPT/HCPCS: 87493; 82656; 83630; 83993

== ENCOUNTER → 2024-04-25 13:12 | Outpatient (BNVA) | payer MEDICARE, SELFPAY | PROVIDERS: PCP Nurse Practitioner Family; Referring Provider Nurse Practitioner Family; Visit Provider Surgery | DX: K43.9 Ventral hernia without obstruction or gangrene (principal); K52.9 Noninfective gastroenteritis and colitis, unspecified | CPT/HCPCS: 99213 ==

== ENCOUNTER → 2024-06-03 12:52 | Outpatient (BNVA) | payer MEDICARE, SELFPAY | PROVIDERS: PCP Nurse Practitioner Family; Referring Provider Nurse Practitioner Family; Visit Provider Surgery | DX: K52.9 Noninfective gastroenteritis and colitis, unspecified (principal); Z72.89 Other problems related to lifestyle | CPT/HCPCS: 99214 ==

== ENCOUNTER → 2024-07-09 09:20 | Outpatient (BNVA) | payer MEDICARE, SELFPAY | PROVIDERS: PCP Nurse Practitioner Family; Referring Provider Nurse Practitioner Family; Visit Provider Surgery | DX: K52.9 Noninfective gastroenteritis and colitis, unspecified (principal) | CPT/HCPCS: 99213 ==

== ENCOUNTER 2025-06-19 08:57 | Outpatient (CLI) | payer MEDICARE, SELFPAY ==
[2025-06-19 15:41] LABS: Anion Gap 10.3 mmol/L (3-11); BUN 23 mg/dL (9-23); CO2 26.7 mmol/L (20.0-31.0); Calcium 8.9 mg/dL (8.3-10.6); Chloride 104 mmol/L (98-107); Glucose 87 mg/dL (74-106); Potassium 4.1 mmol/L (3.5-5.1); Sodium 141 mmol/L (136-145)
== END 2025-06-19 08:58 | disposition home or self-care (01) ==
LOC: LOS 08:58
PROVIDERS: PCP Nurse Practitioner Family; Visit Provider Nurse Practitioner Family
DX: Z13.1 Encounter for screening for diabetes mellitus (principal)
CPT/HCPCS: 36415; 80048

== ENCOUNTER → 2025-06-25 09:29 | Outpatient (BNVA) | payer MEDICARE, SELFPAY | PROVIDERS: PCP Nurse Practitioner Family; Referring Provider Nurse Practitioner Family; Visit Provider Nurse Practitioner Gerontology | DX: N40.1 Benign prostatic hyperplasia with lower urinary tract symptoms (principal); N13.8 Other obstructive and reflux uropathy; R39.9 Unspecified symptoms and signs involving the genitourinary system; R03.0 Elevated blood-pressure reading, without diagnosis of hypertension | CPT/HCPCS: 99213; 51798 ==